=== PATIENT | female | born 1970 | race Caucasian/White ===

== ENCOUNTER 2020-05-05 12:38 | Outpatient (CLI) | payer OTHER, SELFPAY ==
--- NOTE | 2020-05-05 12:44 | MM_ITS ---
WS: [id number] BILATERAL SCREENING DIGITAL MAMMOGRAM WITH CAD HISTORY: SCREENING COMPARISON: 02/19/2019, 12/26/2017 Bilateral CC and MLO views submitted. Computer aided detection analyzed. Breast composition: There are scattered areas of fibroglandular density. No suspicious masses, microc alcifications or architectural distortion. Benign calcification LEFT breast. MM/[id number] IMPRESSION: BI-RADS: 2-Benign FOLLOW UP: 1 Year Follow-up
== END 2020-05-05 12:39 | disposition home or self-care (01) ==
LOC: RADSHAW 12:42
PROVIDERS: PCP Family Medicine; Visit Provider Obstetrics & Gynecology
DX: Z12.31 Encounter for screening mammogram for malignant neoplasm of breast (principal)
CPT/HCPCS: 77067

== ENCOUNTER 2020-07-05 09:11 | Emergency (ER) | payer OTHER, SELFPAY ==
[2020-07-05 09:19] VITALS: BP 124/91; PULSE 81; RESP 16; O2SAT 96; BMI 28.8
[2020-07-05 09:21] VITALS: BP 124/91; PULSE 82; RESP 18; O2SAT 97
--- NOTE | 2020-07-05 09:26 | ED_ITS ---
HPI - General Adult General: Chief complaint: Needlestick/Injury/Exposure Stated complaint: NEEDLESTICK Time Seen by Provider: 07/05/20 09:25 History of Present Illness: HPI narrative: Patient is a 50-year-old female who comes to the ED after having a needlestick injury at work. Patient works here at [employer]. 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 Patient describes as a superficial poke but she did have a little bit of bleeding. Patient says the medical history of the patient she gave the shot to is unknown. She denies any symptoms and clean injury and Place Band-Aid on finger. Associated symptoms: Deny chest pain, dyspnea, headache(s), nausea, rash, palpitations or vomiting Review of Systems Narrative: Needlestick injury. Const: Denies: fever(s), chills or fatigue Eyes: Denies: change in vision or eye discomfort ENMT: Denies: throat pain, odynophagia, nasal discharge or nasal congestion Card: Denies: chest pain, palpitations, edema, swelling of feet/ankles, dyspnea on exertion or orthopnea Resp: Denies: dyspnea, productive cough or non-productive cough GI: Denies: abdominal pain, nausea, vomiting, diarrhea, constipation or hematochezia : Denies: flank pain, dysuria or hematuria Musc: Denies: neck pain, back pain or extremity swelling Skin/Breast: Denies: rash or new lesions Neuro: Denies: headache(s), numbness in extremities or weakness in extremities [facility] ED PFSH: Medical History No pertinent past medical history Surgical History No pertinent past surgical history Family History Other Hypertension Social History Smoking and tobacco status: never smoked Alcohol intake: never History of recent travel: No Physical Exam Const: COMMON NORMALS: no acute distress, patient oriented x3, healthy appearing and alert GENERAL APPEARANCE: cooperative and comfortable HENMT: COMMON NORMALS: normocephalic HEAD & SCALP: normocephalic MOUTH: Normal oral and palatal mucosa present THROAT: posterior oropharynx normal and uvula midline Neck/C-Spine: COMMON NORMALS: supple GENERAL: Yes normal visual inspection Resp: COMMON NORMALS: normal respiratory effort, No retractions, No use of accessory muscles and clear to auscultation bilaterally AUSCULTATION: clear to auscultation bilaterally Cardio: COMMON NORMALS: regular rate, regular rhythm, S1 normal heart sound present, S2 normal heart sound present, No gallops present (Cardio), No clicks present (Cardio), No murmurs present (Cardio) and Peripheral pulses 2+ throughout RATE: regular rate RHYTHM: regular rhythm HEART SOUNDS: S1 normal heart sound present and S2 normal heart sound present PERIPHERAL PULSES: Peripheral pulses 2+ throughout GI: COMMON NORMALS: Normal to inspection, nondistended, normoactive bowel sounds present, Soft to palpation, non-tender and no masses PALPATION: Yes Soft to palpation : COMMON NORMALS: Yes no CVA tenderness BLADDER/KIDNEY EXAM: Yes no CVA tenderness Back/Pelvis: COMMON NORMALS: no CVA tenderness Extremity: NARRATIVE EXTREMITY EXAM: Left hand-Index finger with small puncture wound. Neuro: COMMON NORMALS: patient oriented x3 and moves all extremities SENSORIUM/ORIENTATION: Yes alert Skin: NARRATIVE SKIN EXAM: Left hand-Index finger with small puncture wound. GENERAL SKIN EXAM: dry skin Course Vital Signs: Vital signs: Vital Signs Pulse Rate 75 07/05/20 10:01 Respiratory Rate 18 07/05/20 09:21 Blood Pressure 123/77 07/05/20 10:01 Pulse Oximetry 97 07/05/20 10:01 MDM - General Adult MDM Narrative: Medical decision making narrative: Patient is a 50-year-old female comes to the ED after having an accidental needlestick at work. Patient works at [employer]. She is in no acute distress or pain into having any symptoms currently. Hepatitis panel and HIV labs were all negative. Patient's discharged and I told patient to have labs repeated in the next 2 to 4 months. Return to ED precautions given. Patient stood agree with plan. Lab Data: Labs: Lab Results 07/05/20 07/05/20 Range/Units 09:39 09:39 Hepatitis A IgM Ab Non-reactive (Nonreactive) Hep Bs Antigen Non-reactive (Nonreactive) Hep Bs Antibody 19.9 (11.5-1000) Hep B Core Total A b Non-reactive (Nonreactive) Hepatitis C Antibo dy Non-reactive (Nonreactive) HIV 1&2 Ab & HIV 1 Ag Non-reactive (Non-Reactiv) HIV 1&2 Antibody Non-reactive (Non-Reactiv) Discharge Plan Discharge Patient Disposition: Home Clinical Impression: Needle stick injury Condition: Stable Prescriptions: No Action No Known Home Medications RF: 0 Discharge Orders: Discharge ED (Routine); Ordered 07/05/20 Ordered By: Haris Stanley Referrals: Chip Duque MD [Primary Care Provider] - Discharge Diet: Regular Discharge Activity: Resume usual activity Patient Instructions: Blood/Body Fluid Exposure - Occupational, Needle Stick Injuries (ED) Activity Restrictions/Additional Instructions: Follow-up with medical provider as directed. Follow-up in the next 2 to 4 months with PCP in the next 2 to 4 months to repeat hepatitis and HIV lab work. Return to the ER or your medical provider if condition worsens. Please read and understand discharge instructions. If any questions, please ask. Coding Level of Care Code ED Hydrological Technical Officer for Zohreh Fwd Exam Comprehensive
[2020-07-05 10:01] VITALS: BP 123/77; PULSE 75; O2SAT 97
[2020-07-05 10:33] LABS: Hepatitis A Antibody IgM Non-Reactive (Nonreactive); Hepatitis B Core AB, Total Non-Reactive (Nonreactive); Hepatitis B Surface AB 19.9 (11.5-1000); Hepatitis B Surface Antigen Non-Reactive (Nonreactive); Hepatitis C Virus Antibody Non-Reactive (Nonreactive)
[2020-07-05 19:15] LABS: HIV 1 & 2 Antibody Non-Reactive (Non-Reactiv); HIV 1 & 2 Antigen Non-Reactive (Non-Reactiv)
== END 2020-07-05 10:05 | disposition home or self-care (01) ==
PROVIDERS: Emergency Provider Physician Assistant; PCP Family Medicine
DX: S61.231A Puncture wound without foreign body of left index finger without damage to nail, initial encounter (principal); W46.1XXA Contact with contaminated hypodermic needle, initial encounter; Y99.0 Civilian activity done for income or pay
CPT/HCPCS: 86705; 86706; 86709; 86803; 87340; 87806; 99282

== ENCOUNTER 2021-12-06 11:50 | Outpatient (CLI) | payer OTHER, SELFPAY ==
--- NOTE | 2021-12-06 11:56 | MM_ITS ---
WS: [id number] BILATERAL SCREENING DIGITAL TOMOSYNTHESIS MAMMOGRAM WITH CAD HISTORY: SCREENING COMPARISON: 05/05/2020 and 02/19/2019 Bilateral CC and MLO views with tomosynthesis and synthetic mammography submitted. Computer aided det ection analyzed. Breast composition: There are scattered areas of fibroglandular density. No suspicious masses, microc alcifications or architectural distortion. Benign calcification posterior LEFT breast. MM/[place] [id number] IMPRESSION: BI-RADS: 2-Benign FOLLOW UP: 1 Year Follow-up
== END 2021-12-06 11:51 | disposition home or self-care (01) ==
LOC: RAD 11:51
PROVIDERS: PCP Family Medicine; Visit Provider Family Medicine
DX: Z12.31 Encounter for screening mammogram for malignant neoplasm of breast (principal)
CPT/HCPCS: 77063; 77067

== ENCOUNTER → 2021-12-28 11:21 | Outpatient (BNVA) | payer OTHER, SELFPAY | PROVIDERS: PCP Family Medicine; Visit Provider Nurse Practitioner Women's Health | DX: N93.9 Abnormal uterine and vaginal bleeding, unspecified (principal) | CPT/HCPCS: 76830; 85025; 87624 ==

== ENCOUNTER 2022-01-12 01:00 | Outpatient (CLI) | payer OTHER, SELFPAY | END 2022-01-12 23:00 | disposition home or self-care (01) | LOC: RAD 01-22 22:54 | PROVIDERS: PCP Family Medicine; Visit Provider Nurse Practitioner | DX: Z12.4 Encounter for screening for malignant neoplasm of cervix (principal); R87.615 Unsatisfactory cytologic smear of cervix | CPT/HCPCS: 88175; 88305 ==

== ENCOUNTER 2022-04-11 17:00 | Observation (INO) | payer OTHER, SELFPAY ==
[2022-04-09 13:29] VITALS: BMI 28.8
--- NOTE | 2022-04-09 14:13 | P.ANESASSM_ITS ---
Pre-Anesthetic Assessment Height/Weight: Height 1.73 m Weight 86.183 kg Preop Diagnosis: Abnormal uterine bleeding Operation Date: 04/11/22 11:10 Proposed Procedures p Laparoscopic assisted vaginal hysterectomy, bilateral salpingo-oophorectomy 73372, Single incision sling 49780,N93.9,N39.3(Not Applicable) - Phoenix Monte MD s Sling Single Incision Sling(Not Applicable) - Phoenix Monte MD Familial anesthetic complications: None Social No alcohol and No tobacco Exam alert, oriented x 3, clear to auscultation bilaterally and regular rate & rhythm Airway Mallampati: Class II Dentition: full AUB Anesthetic Plan ASA status: 2 Anesthesia: General Risk of > 500 ml blood loss (7ml/kg in children): No Medications/Allergies Home Medications Medication Instructions Recorded Confirmed Last Taken Type dorzolamide 22.3 mg-timolol 6.8 1 drp ophthalmic (eye) BID 12/28/21 04/09/22 04/09/22 History mg/mL eye drops (Cosopt) travoprost 0.004 % eye drops drp ophthalmic (eye) 12/28/21 04/09/22 Unknown History (Travatan Z) norethindrone acetate 5 mg tablet 5 mg PO DAILY #30 tabs 01/16/22 04/09/22 Unknown Rx Allergies Allergy/AdvReac Type Severity Reaction Status Date / Time No Known Allergies Allergy Verified 04/09/22 13:27 [facility] Anesthesia Medical History No pertinent past medical history neghx: htn,dm,thyroid,dvt/pe PCP: Dr. Duque Surgical History Hx of cataract extraction (~1995) 1995 2018 Hx of section 1) 01/30/1999, Perfomed at [facility] in [place], [place]. 2) 09/26/2000 Performed at [facility] in [place], [place]. 3) 05/26/2003 Performed at [facility] in [place], [place]. Hx of eye surgery 03/1994, Correction of Detached Retina 07/1994, Correction of Detached Retina Hx of tubal ligation (~2003) Preformed at the time of last in 2003 Family History Mother Family history of thyroid problem Hypertension Hyperlipidemia Father Hypertension Denies family history of Colon cancer Ovarian cancer Diabetes Heart disease Breast cancer Uterine cancer Stroke Social History Smoking and tobacco status: never smoked Female Reproductive History Date of last menstrual period: 03/19/22 Data Anesthesia Cardiac Studies: No Data to Display
[2022-04-09 14:16] LABS: Add Urine Microscopic? NO; Charge for UA Resulting for Rev
[2022-04-09 14:17] LABS: OR HCG Qualitative Urine Negative (Negative)
[2022-04-09 14:21] LABS: Basophils % 0.5 %; Eosinophils # 0.1 10^3/uL (0.0-0.8); Eosinophils % 2.2 %; Hematocrit 42.1 % (37.0-47.0); Lymphocytes # 1.6 10^3/uL (0.8-4.8); Lymphocytes % 24.5 %; Mean Corpuscular HGB Conc 30.9 g/dL (30.0-36.0); Mean Corpuscular Hemoglobin 27.1 pg (28.0-34.0); Mean Corpuscular Volume 87.7 fl (81-99); Mean Platelet Volume 12.7 fL (7.4-10.4); Monocytes # 0.5 10^3/uL (0.2-0.9); Monocytes % 7.4 %; Neutrophils # 4.22 10^3/uL (1.8-7.7); Neutrophils % 65.1 %; Nucleated Red Blood Cells % 0 %; Platelet Count 171 10^3/cmm (130-400); Red Cell Distribution Width 13.2 % (12.1-15.1); White Blood Count 6.5 10^3/uL (4.0-10.0)
[2022-04-09 14:26] LABS: Bilirubin Urine Neg (Negative); Blood Urine Neg (Negative); Glucose Urine UA Norm (Normal); Ketones Urine Negative (Negative); Leukocyte Esterase Urine Negative (Negative); Nitrate Urine Negative (Negative); Protein Urine Neg (Negative); Specific Gravity, Urine 1.005 (1.005-1.030); Urine Appearance Clear (CLEAR); Urine Color Yellow (Yellow); Urobilinogen Urine Neg (Negative); pH Urine 7 (5-7)
[2022-04-09 14:40] LABS: Alanine Aminotransferase 13 U/L (0-33); Albumin Level 4.4 g/dL (3.5-5.2); Alkaline Phosphatase 73 U/L (35-105); Anion Gap 12.9 (5-19); Aspartate Amino Transferase 15 U/L (0-32); Blood Urea Nitrogen 10 mg/dL (6-20); Calcium 8.6 mg/dL (8.5-10.5); Carbon Dioxide 24 mmol/L (22-29); Chloride 102 mmol/L (98-107); Globulin 2.9 g/dL (1.3-4.6); Glomerular Filtration Rate 105.8 mL/min (90-130); Glucose 74 mg/dL (65-115); Osmolality Calculated 278 mOsm/kg (285-295); Potassium 3.9 mmol/L (3.5-5.1); Sodium 135 mmol/L (136-145); Total Bilirubin 0.3 mg/dL (0.15-1.2); Total Protein 7.3 g/dL (6.6-8.7)
[2022-04-11] VITALS (23 sets, daily range): BP systolic 65–140; BP diastolic 40–82; PULSE 59–73; RESP 12–23; TEMP 36.7–37.4; O2SAT 93–100
[2022-04-11] MEDS: sodium chloride 0.9% 500 ML IV (09:48)
[2022-04-11] MEDS: sodium chloride 0.9% 1,000 ML 30 ML IV (09:49)
[2022-04-11] MEDS: scopolamine 1.5 Patch 1 PATCH TRANSDERMA (09:49)
[2022-04-11 09:57] LABS: OR HCG Qualitative Urine Negative (Negative)
--- NOTE | 2022-04-11 10:08 | P.ANESUD_ITS ---
Pre-Anesthetic Update Pre-Anesthetic Assessment: Date of Surgery/Procedure: 04/11/22 Preop Chiqui gnosis: Abnormal uterine bleeding Proposed Procedure: Operation Date: 04/11/22 11:10 Proposed Procedures p Laparoscopic assisted vaginal hysterectomy, bilateral salpingo-oophorectomy 23649, Single incision sling 13008,N93.9,N39.3(Not Applicable) - Phoenix Monte MD s Sling Single Incision Sling(Not Applicable) - Phoenix Monte MD Any changes to Pre-Anesthetic Assessment?: No Last Intake: Intake Last Liquid Date 04/10/22 Last Liquid Time 21:30 Last Solid Date 04/10/22 Last Solid Time 20:30 Labs Last 48hrs: Short CBC 04/09/22 Range/Units 14:00 WBC 6.5 (4.0-10.0) 10^3/ uL Hgb 13.0 (11.5-15.3) g/dL Hct 42.1 (37.0-47.0) % MCV 87.7 (81-99) fl Plt Count 171 (130-400) 10^3/c mm Neut % (Auto) 65.1 % Neut # (Auto) 4.22 (1.8-7.7) 10^3/u L BMP 04/09/22 14:00 Sodium 135 L Potassium 3.9 Chloride 102 Carbon Dioxide 24 BUN 10 Creatinine 0.6 Glucose 74 Calcium 8.6 Liver Function 04/09/22 Range/Units 14:00 Total Bilirubin 0.3 (0.15-1.2) mg/dL AST 15 (0-32) U/L ALT 13 (0-33) U/L Alkaline Phosphata se 73 (35-105) U/L Albumin 4.4 (3.5-5.2) g/dL Urine 04/09/22 Range/Units 13:43 Urine Color Yellow (Yellow) Urine Appearance Clear (CLEAR) Urine pH 7 (5-7) Ur Specific Gravit y 1.005 (1.005-1.030) Urine Protein Neg (Negative) Urine Glucose (UA) Norm (Normal) Urine Ketones Negative (Negative) Urine Nitrate Negative (Negative) Urine Bilirubin Neg (Negative) Ur Leukocyte Leonora ase Negative (Negative) Blood Bank 04/09/22 14:00 Blood Type A Negative Rho(D) Type Negative Antibody Screen Negative Vitals: Temperature 99.4 F 04/11/22 09:41 Temperature Source Temporal Artery S can 04/11/22 09:41 Pulse Rate 73 04/11/22 09:41 Respiratory Rate 16 04/11/22 09:41 Blood Pressure 140/82 04/11/22 09:41 Blood Pressure Marisa n 101 04/11/22 09:41 Pulse Oximetry 98 04/11/22 09:41 Oxygen Delivery Me thod 04/11/22 09:41 Exam: Pre-Anes Outpt Exam: alert, oriented x 3, clear to auscultation bilaterally and regular rate & rhythm Cardiac Studies: No Data to Display
--- NOTE | 2022-04-11 12:00 | W.PM.OPSUD ---
Surgery/Procedure H&P Update DATE OF PROCEDURE: April 11, 2022 DATE H&P PERFORMED: 04/09/22 H&P UPDATE INFORMATION: I have reviewed H&P completed within last 30 days, I have examined patient prior to procedure and No changes to prior documentation PREOP DIAGNOSIS: Abnormal uterine bleeding PLANNED PROCEDURE: Operation Date: 04/11/22 11:10 Proposed Procedures p Laparoscopic assisted vaginal hysterectomy, bilateral salpingo-oophorectomy 44346, Single incision sling 53795,N93.9,N39.3(Not Applicable) - Phoenix Monte MD s Sling Single Incision Sling(Not Applicable) - Phoenix Monte MD
[2022-04-11] MEDS: ceFOXitin 2,000 MG in sodium chloride 0.9% (plus) 50 ML 100 MG IV (12:45)
[2022-04-11] MEDS: lidocaine 2% INJ 20 mL INJECTION (15:10)
[2022-04-11] MEDS: estrogens Conjugated Cream 30 gm 1 APPLIC VAGINAL (15:25)
--- NOTE | 2022-04-11 15:31 | PM.OP ---
Operative Report Date of procedure: April 11, 2022 Pre-op diagnosis: Preop Diagnosis Abnormal uterine bleeding Post-op diagnosis: Same as above Post-op findings: Enlarged uterus and bladder adhesions Procedure done: Laparoscopic-assisted vaginal hysterectomy. Single incision mid urethral sling Specimens removed/disposition: Uterus Surgeon: Phoenix Monte MD Estimated blood loss (mL): 500 IV fluids (mL): 1,700 Urine output (mL): 300 Complications: Bleeding. Findings: Bladder adhesions Procedure: After informed consent, the patient was taken to the operating room where general anesthesia was administered. Pre-Procedure Time-Out verifying the correct patient identity, correct procedure verified with consent, correct site and side, correct patient position, availability of correct implants and any special equipment or requirements was performed and acknowledge by the OR team. She was placed in the dorsal lithotomy position and prepped and draped in sterile fashion. The patient was examined under anesthesia and found to have a normal uterus with normal adnexa. A Hanson catheter was placed in the bladder. A weighted speculum was placed in the vagina, and the anterior lip of cervix was grasped with the single toothed tenaculum. A uterine manipulator was advanced into the endocervical. Tenaculum was removed after uterine manipulator was secured. The speculum was removed from the vagina. The attention was brought to abdomen after changing gloves. The base of the umbilicus was grasped with an Allis clamp and with 2 towel clamp bilaterally tenting up the umbilicus an intraumbilical incision was made with a scalpel. While tenting up on the abdomen, a Verres needle with sleeve was admitted into the intra-abdominal cavity. A saline drop test was performed and noted to be within normal limits. Pneumoperitoneum was attained with 4 liters of carbon dioxide. The Verres needle was removed. Then a 5 mm Optiview trocar and cannula were inserted under direct visualization without complications. Trocars were removed and the laparoscope was inserted and connected to the video camera light source. A 5 mm trocar and cannula were placed in the right lower quadrant under direct visualization after infiltration of 0.5% Marcaine with epinephrine. A 5 mm trocar and cannula were placed in the left lower quadrant under direct visualization after infiltration of 0.5% Marcaine with epinephrine. The pelvic contents were visualized and noted a small uterus, deep cul-de-sac, normal bilateral fallopian tubes and ovaries, normal appendix, and both ureters were identified crossing the pelvic brim and pelvic sidewall. The left round ligament was coagulated and transected using Enseal device. The left broad ligament was opened down to the level of the uterine artery and vein. The left infundibulopelvic ligament was coagulated using Enseal and then transected. The right round ligament was coagulated and transected using Enseal, and the right broad ligament was opened down to the level of the right uterine artery and vein. The right infundibulopelvic ligament was coagulated and transected using Enseal. Peritoneum of the lower uterine segment was entered using Enseal, and the bladder was dissected off the lower uterine segment using blunt dissection. Careful inspection revealed complete hemostasis. A weighted speculum was placed in the posterior vaginal wall and the right-angle retractor used to visualize the cervix. The cervix was grasped across the anterior lip with a single-toothed tenaculum and circumferentially infiltrated with 1% Xylocaine with epinephrine at this time. The cervix was circumferentially excised with the scalpel. The vaginal mucosa was dissected superiorly with sharp dissection. The anterior peritoneal reflection was identified, and it was entered with Metzenbaum scissors. A posterior colpotomy was made through the cul-de-sac space. The posterior peritoneum was identified in similar fashion and Metzenbaum scissors were used to enter the cul-de-sac. At this time, a weighted speculum was placed, advanced posteriorly into the cul-de-sac. At this time, the left and right uterosacral ligaments were isolated and ligated with 0 Vicryl. The Enseal device was then used in a serial fashion up through the cardinal ligaments bilaterally. Finally, the uterine arteries were cross-clamped, cut, and ligated with the Enseal device. Enseal device was then used up through the broad ligaments superiorly and finally the uterus was rotated posteriorly. The left and right tubes were then cross-clamped and ligated with Enseal device. The uterus was excised and submitted for pathologic evaluation. At this time, Dime Box clamps were used to grasp the left and right ovaries, and they were removed per the patient's request. Curved Zeppelin clamps were placed across the infundibulopelvic ligaments bilaterally and curved scissors were used to excise the specimen from the Zeppelin clamp. The pedicles were doubly ligated bilaterally with 0 Vicryl and hemostasis noted to be achieved. No other abnormalities were noted in the pelvic cavity. At this time, instruments were removed from the patient's abdominopelvic cavity. Vaginal cuff closure and peritoneum were incorporated into one layer with 0 Vicryl suture in a continuous running interlocking fashion. Hemostasis was noted to be achieved. Patient was given methylene blue IV. Then proceeded to perform the single incision mid urethral sling.A vertical midline incision was made beneath the midurethra, nearly 1.5 cm length. Careful submucosal dissection was performed bilaterally up to the interior portion of the inferior pubic ramus. The insertion of adductor longus tendon on the patient?s pubic ramus was identified as reference land jael. Palpated the notch along the internal edge of ischiopubic ramus where the adductor longus tendon and the inferior pubic ramus meet. The Altis single incision sling (SIS) was selected. Then the needle of the SIS inserted aiming at the location of this notch. One of the integrated self-fixating tips place onto the needle by sliding it over the end of the needle. The needle/sling assembly was inserted toward the location of identified reference notch making sure that the flat of the handle is perpendicular to the desired path. The needle was tracked along the posterior surface of the ischiopubic ramus until the midline jael on the mesh is approximately at the midline position under the urethra. The needle was removed and the same was repeated on the contralateral side until the appropriate sling tension under the urethra was achieved ensuring that the mesh lays flat. The needle was removed and vaginal incision was closed in a running interlocking fashion with 2-0 Vicryl. Hanson catheter was noted yielding clear lawrence urine. A vaginal packing with Premarin cream was placed to provide support during the healing process. The patient tolerated the procedure well and was taken to the recovery room in a stable condition. Sponge and needle counts were correct x3.
--- NOTE | 2022-04-11 15:50 | ANE.PACU2 ---
Inpatient post-anesthesia follow up: Airway intact: Yes Vital signs: Temperature 99.4 F Pulse Rate 73 Respiratory Rate 16 Blood Pressure 140/82 Pulse Oximetry 98 Oxygen Delivery Me thod Room Air Oxygen Flow Rate Fraction of Inspir ed Oxygen Hydration adequate: Yes Nausea and vomiting: No Pain level: 1 Mental status: Baseline
[2022-04-11 16:21] LABS: Hematocrit 34.6 % (37.0-47.0); Hemoglobin 10.5 g/dL (11.5-15.3)
--- NOTE | 2022-04-11 16:38 | PC.NURSE ---
Addendum entered by Sushma Belcher RN 04/11/22 16:47: Albumin administration time was 1603 Original Note: ABDOMEN SOFT ON ARRIVAL WITH NO ACTIVE BLEEDING NOTED. ORAL AIRWAY REMOVED @ 1550. bp drop noted. Dr Garcia @ bedside. Albumin administered by DRYING MACHINE RECEIVER. Patient remained alert and oriented with no sign of active bleeding. Abdomen remained soft.
--- NOTE | 2022-04-11 17:16 | PC.NURSE ---
Saucer sized bleeding noted on chux when patient transferred from cart to bed. OB nurse aware and stated she will monitor
--- NOTE | 2022-04-11 17:28 | PC.NURSE ---
Attempted to update Dr. Monte. No answer. Called OB to let them know I was not able to reach him. Dr. Monte valled OB. OB nurse will update.
[2022-04-11] MEDS: docusate sodium 100 mg Capsule PO (18:25)
[2022-04-11] MEDS: ketorolac 30 mg/mL INJ IVP ×2 (18:25→23:25)
[2022-04-11] MEDS: COSOPT 1 EACH EYE-BOTH (19:19)
--- NOTE | 2022-04-11 21:20 | PC.NURSE ---
Patient was helped from bed to chair. Initially she felt a little light headed when sitting up in bed but sat on the side of the bed for several minutes and then felt better. She then stood up and felt fine to walk to the chair beside the bed. She sat in the chair for almost 15 minutes and wanted to attempt to walk and she was feeling better. She stood up from the chair slowly but then when we started to walk towards the door she said that she felt lightheaded again and felt like she was going to pass out. I helped her back to the chair and sat her down. I took her vitals and it was blood pressure 75/48, heart rate of 52 pulse ox was 99% and RR was 22. She was pale in color. She sat in the chair for a couple minutes but was still feeling lightheaded I assisted her back to bed and once she laid down she reported feeling much better. After a couple minutes she regained her color in her face. I gave her some crackers and peanut butter as she had no eaten much today and instructed her to drink lots of water as well. I stayed with her in the room until she reported feeling better. Repeat check of vitals was blood pressure 118/75, heart rate 74, RR was 18, and pulse ox of 99%.
[2022-04-12 00:10] VITALS: BP 95/54; PULSE 67; RESP 17; TEMP 36.5; O2SAT 99
[2022-04-12 02:30] VITALS: BP 95/56; PULSE 71; RESP 18; TEMP 36.6; O2SAT 98
[2022-04-12] MEDS: dextrose 5%-lactated ringers 1,000 ML 125 ML IV (03:00)
[2022-04-12 04:15] VITALS: BP 93/50; PULSE 74; RESP 17; TEMP 36.7; O2SAT 99
--- NOTE | 2022-04-12 05:30 | PC.NURSE ---
Patient walked one lap around the OB department with standby assistance from nurse. She tolerated the walk well and denied of dizziness. She was then helped back to bed and laid down. I removed 10 ml of water from bucio bulb and then bucio was removed catheter intact upon removal. Patient tolerated the procedure well. Vaginal packing was then removed as well. Patient tolerated the procedure well. I then instructed the patient that the next time she urinates to urinate in the hat and then push her call light and we will bring in the bladder scanner. She verbalized understanding.
[2022-04-12] MEDS: ketorolac 30 mg/mL INJ IVP (05:37)
[2022-04-12 05:38] LABS: Hematocrit 27.4 % (37.0-47.0); Hemoglobin 8.4 g/dL (11.5-15.3); Mean Corpuscular HGB Conc 30.7 g/dL (30.0-36.0); Mean Corpuscular Hemoglobin 27.5 pg (28.0-34.0); Mean Corpuscular Volume 89.5 fl (81-99); Mean Platelet Volume 12.5 fL (7.4-10.4); Platelet Count 125 10^3/cmm (130-400); Red Blood Count 3.06 10^6/uL (4.1-5.3); Red Cell Distribution Width 13.2 % (12.1-15.1); White Blood Count 11.2 10^3/uL (4.0-10.0)
--- NOTE | 2022-04-12 07:27 | PC.NURSE ---
Patient up to void at 0715, noted have moderate amount of vaginal bleeding in to toilet while up to void.
[2022-04-12] MEDS: docusate sodium 100 mg Capsule PO (09:09)
[2022-04-12 09:11] VITALS: BP 134/81; PULSE 74; RESP 16; O2SAT 98
--- NOTE | 2022-04-12 10:38 | P.DS_ITS ---
Discharge Providers SAFETY AND SECURITY MANAGER Date of Admission: 04/11/22 17:00 Date of Discharge: 04/12/22 Attending Provider at Admission: Phoenix Monte MD Attending Provider at Discharge: Phoenix Monte MD Primary Care Provider: Chip Duque MD Reason for Visit Reason for Visit: abnormal uterine and vaginal bleeding, unspecified Brief History: Mrs. Willoughby 52-year-old female with abnormal uterine bleeding and uterine fibroid unresponsive to medical management. Past surgical history is significant for 3 deliveries. Hospital Course Hospital Course Mrs. Menon 52-year-old female with a history of abnormal uterine bleeding and uterine fibroid admitted for planned laparoscopic-assisted vaginal hysterectomy with bilateral salpingo-oophorectomy. Procedure was performed with lysis of adhesions adhesions. Overnight observation significant for occasional blood pressure, small vaginal bleeding. She is afebrile hemodynamically stable postoperative day 1. Tolerating diet well. Ambulating without difficulty. She was counseled regarding pelvic rest for 6 weeks (no sex, no tampons, no vaginal douches). Return to the emergency room if any fever, increased bleeding or pain. Physical Exam Narrative: GA: Alert and oriented ?3. HEENT: WNL. Heart: Regular rate and rhythm. Lungs: Clear to auscultation bilaterally. Abdomen: Bowel sounds present, nontender, minimal tenderness, incision clean and dry, no redness, pain or edema. GROUP HOME PARAPROFESSIONAL: mod bleeding. Extremities: No edema, no cyanosis, no calves pain. Urinary Catheter Management: Hanson: Cath Placed During This Visit: yes, but has since been removed by the nurse Reason for Continuing Indwelling Catheter: Decision to DC Catheter Urinary Catheter Date of Insertion: 04/11/22 Urinary Catheter Time of Insertion: 13:15 Date Urinary Catheter Removed: 04/12/22 Time Urinary Catheter Discontinued: 05:30 History History History 3 Term 3 0 Miscarriages/Ectopic 0 Living Children 3 Discharge Data Studies Completed and Pending Pending at discharge Category Date Time Status Pathology: Surgical [PTH] Routine Pth 04/11/22 15:44 Received Laboratory Results WBC 11.2 10^3/uL (4.0-10.0) H 04/12/22 05:27 RBC 3.06 10^6/uL (4.1-5.3) L 04/12/22 05:27 Hgb 8.4 g/dL (11.5-15.3) L 04/12/22 05:27 Hct 27.4 % (37.0-47.0) L 04/12/22 05:27 MCV 89.5 fl (81-99) 04/12/22 05:27 MCH 27.5 pg (28.0-34.0) L 04/12/22 05: MCHC 30.7 g/dL (30.0-36.0) 04/12/22 05: RDW 13.2 % (12.1-15.1) 04/12/22 05:27 Plt Count 125 10^3/cmm (130-400) L 04/12/22 05:27 MPV 12.5 fL (7.4-10.4) H 04/12/22 05:27 Neut % (Auto) 65.1 % 04/09/22 14:00 Lymph % (Auto) 24.5 % 04/09/22 14:00 [place] % (Auto) 7.4 % 04/09/22 14:00 Eos % (Auto) 2.2 % 04/09/22 14:00 Baso % (Auto) 0.5 % 04/09/22 14:00 Neut # (Auto) 4.22 10^3/uL (1.8-7.7) 04/09/22 14:00 Lymph # (Auto) 1.6 10^3/uL (0.8-4.8) 04/09/22 14:00 [place] # (Auto) 0.5 10^3/uL (0.2-0.9) 04/09/22 14:00 Eos # (Auto) 0.1 10^3/uL (0.0-0.8) 04/09/22 14:00 Baso # (Auto) 0.0 10^3/uL (0.0-0.1) 04/09/22 14:00 Nucleated RBC % (auto) 0 % 04/09/22 14:00 Nucleated RBCs # 0.0 /100WBC 04/09/22 14:00 Sodium 135 mmol/L (136-145) L 04/09/22 14:00 Potassium 3.9 mmol/L (3.5-5.1) 04/09/22 14:00 Chloride 102 mmol/L (98-107) 04/09/22 14:00 Carbon Dioxide 24 mmol/L (22-29) 04/09/22 14:00 Anion Gap 12.9 (5-19) 04/09/22 14:00 BUN 10 mg/dL (6-20) 04/09/22 14:00 Creatinine 0.6 mg/dL (0.5-0.9) 04/09/22 14:00 GFR Calculation 105.8 mL/min (90-130) 04/09/22 14:00 Glucose 74 mg/dL (65-115) 04/09/22 14:00 Calculated Osmolality 278 mOsm/kg (285-295) L 04/09/22 14:00 Calcium 8.6 mg/dL (8.5-10.5) 04/09/22 14:00 Total Bilirubin 0.3 mg/dL (0.15-1.2) 04/09/22 14:00 AST 15 U/L (0-32) 04/09/22 14:00 ALT 13 U/L (0-33) 04/09/22 14:00 Alkaline Phosphatase 73 U/L (35-105) 04/09/22 14:00 Total Protein 7.3 g/dL (6.6-8.7) 04/09/22 14:00 Albumin 4.4 g/dL (3.5-5.2) 04/09/22 14:00 Globulin 2.9 g/dL (1.3-4.6) 04/09/22 14:00 Urine Color Yellow (Yellow) 04/09/22 13:43 Urine Appearance Clear (CLEAR) 04/09/22 13:43 Urine pH 7 (5-7) 04/09/22 13:43 Ur Specific [place] 1.005 (1.005-1.030) 04/09/22 13:43 Urine Protein Neg (Negative) 04/09/22 13:43 Urine Glucose (UA) Norm (Normal) 04/09/22 13:43 Urine Ketones Negative (Negative) 04/09/22 13:43 Urine Blood Neg (Negative) 04/09/22 13:43 Urine Nitrate Negative (Negative) 04/09/22 13:43 Urine Bilirubin Neg (Negative) 04/09/22 13:43 Urine Urobilinogen Neg mg/dL (Negative) 04/09/22 13:43 Ur Leukocyte Esterase Negative (Negative) 04/09/22 13:43 Urine HCG, Qual Negative (Negative) 04/11/22 09:56 Blood Type A Negative 04/09/22 14:00 Rho(D) Type Negative 04/09/22 14:00 Antibody Screen Negative 04/09/22 14:00 Vitals Last Vital Signs Temp 98.1 F 04/12/22 04:15 Pulse 74 04/12/22 09:11 Resp 16 04/12/22 09:11 BP 134/81 04/12/22 09:11 Pulse Ox 98 04/12/22 09:11 O2 Del Method 04/12/22 09:11 O2 Flow Rate 8 04/11/22 15:50 Discharge Plan Discharge Patient Disposition: Home Condition: Stable Prescriptions: New hydrocodone-acetaminophen 5-325 mg tablet 1 tab PO Q4H PRN (Reason: pain) Qty: 20 0RF acetaminophen 325 mg capsule 325 mg PO Q4H PRN (Reason: fever or postoperative pain) Qty: 60 0RF docusate sodium [Colace] 100 mg capsule 100 mg PO BID Qty: 30 0RF ferrous sulfate [Iron (ferrous sulfate)] 325 mg (65 mg iron) tablet 325 mg PO BID Qty: 60 0RF ibuprofen 800 mg tablet 800 mg PO TID PRN (Reason: pain) Qty: 60 0RF Continued travoprost [Travatan Z] 0.004 % drops 1 drp ophthalmic (eye) DAILY dorzolamide-timolol [Cosopt] 22.3-6.8 mg/mL drops 1 drp ophthalmic (eye) BID Label Comments: Right eye BID Discharge Orders: Discharge Order (Routine); Ordered 04/12/22 Ordered By: Phoenix Monte Referrals: Phoenix Monte MD [Physician] - 04/24/22 8:15 am (6 week follow up 05/22/22@4pm) Discharge Diet: Usual diet Discharge Activity: Limit activity as instructed Patient Instructions: Ibuprofen (By mouth), Laxative, Stool Softeners (By mouth), Laparoscopic Hysterectomy (DC), OB Discharge Report, OB Food/Drug Interaction Guide, Opioid Safety Activity Restrictions/Additional Instructions: 1. Please call [facility] clinic on next working day to make your post-operative appointment in 2 weeks. 2. Please stay home until you come back to the clinic on first post-operative check up. 3. Please follow instructions on your medications CAREFULLY. 4. If you have abdominal incision, do not cover it unless dressing is necessary because of drainage. OK to shower, but avoid bath. Leave steri-strips until they fall off. If they are still on one week after surgery, you may remove them. 5. If you had vaginal surgery or vaginal repair, Dr. Monte may instruct you to take SITZ bath. 6. Yellow, blood tinged odorous vaginal discharge is usually normal after hysterectomy or vaginal surgeries. 7. No sexual intercourse, tampons, or douches until you are completely released from the post-operative care. 8. Avoid constipation by eating right and maybe using some Metamucil or Milk of Magnesia. 9. All prescription refills are given during the working hours. Please do no wait till it runs out. Call the clinic at [phone] before your medication runs out. The clinic will get in touch with your doctor to prescribe medications if necessary. 10. Please remain within 40 mile radius from our hospital because emergencies do happen now and then during the post-operative period. 11. If you have stairs at home, take one step at a time slowly and minimize the number of trips. It helps to stay in one floor for the next few days. No lifting except what you can lift by one hand until you are released from the post-operative care. 12. Driving is discouraged until you are well healed. It may be 3-4 weeks before you feel strong enough to drive. You should be able to turn and look through the rear window without pain and you should be able to push the brake pedal very hard without pain before you drive. No fast rules, but SAFETY should be your primary concern. DO NOT drive if you are on sedating medications such as narcotics. 13. Call the clinic (during working hours) to make urgent appointment or go to the Emergency room, if any of the following occurs: i. Vaginal bleeding becomes heavy, more than a period. ii. Incision becomes red and sore, or drains pus. iii. Your temperature is over 100.4 or you have chill. iv. IV site becomes red and swollen (a little ``knot?? is usually OK) v. Persistent nausea and vomiting vi. Persistent constipation or diarrhea vii. Rash or allergic reaction to medications. Discharge Attestations SAFETY AND SECURITY MANAGER Time Spent in Discharge Care*: greater than 30 min Coding Level of Care Code Acute Code for Chg Fwd
--- NOTE | 2022-04-12 11:28 | US_ITS ---
WS: [id number] TRANSABDOMINAL PELVIC ULTRASOUND HISTORY: vaginal bleeding post hysterectomy COMPARISON: 12/28/2021. Status post hysterectomy since the prior study. A transabdominal imaging is submitted. There is a large amount of shadowing obscuring detail within t he pelvis. Mixed hypoechoic area in the midline could be a postoperative hematoma. This area of mixed echogenicity buffered only hypoechoic measures 9.8 x 5.5 x 4.3 cm. There is no free fluid in Morison 's pouch. US/US pelvic limited [id number] IMPRESSION: Hypoechoic area in the central pelvis measures 9.8 x 5.5 x 4.3 cm. May represen t a postoperative hematoma. Limited evaluation of the pelvic structures, only transabdominal imaging submit lola.
[2022-04-12 11:31] LABS: Hematocrit 29.6 % (37.0-47.0); Hemoglobin 8.9 g/dL (11.5-15.3); Mean Corpuscular HGB Conc 30.1 g/dL (30.0-36.0); Mean Corpuscular Hemoglobin 27.4 pg (28.0-34.0); Mean Corpuscular Volume 91.1 fl (81-99); Mean Platelet Volume 13.2 fL (7.4-10.4); Platelet Count 151 10^3/cmm (130-400); Red Blood Count 3.25 10^6/uL (4.1-5.3); Red Cell Distribution Width 13.3 % (12.1-15.1)
[2022-04-12 11:34] VITALS: BP 133/66; PULSE 69; RESP 16; O2SAT 98
--- NOTE | 2022-04-12 11:35 | PC.NURSE ---
Patient taken to OB 3 to utilize a bed with stirrups and Dr. Monte performed speculum exam with assembly instructions writer and Lia Manuel at bedside. Dr. Monte requested and utilized silver nitrate x2 sticks. Patient tolerated well and denied need for pain medication after exam was complete.
[2022-04-12] MEDS: silver nitrate applicator 1 EACH TOPICAL ×2 (12:02→12:03)
--- NOTE | 2022-04-12 12:59 | PC.NURSE ---
DR. RUFF WENT INTO TALK WITH PATIENT AND HE WAS OK WITH HER BEING DISCHARGED HOME AND APPOINTMENT MADE FOR HER TO SEE HIM ON SATURDAY.
[2022-04-12 13:37] VITALS: BP 133/82; PULSE 79; RESP 16; TEMP 36.6; O2SAT 98
== END 2022-04-12 13:20 | disposition home or self-care (01) ==
LOC: OBGYN 17:51
PROVIDERS: Anesthesiology; Admitting Provider Obstetrics & Gynecology; PCP Family Medicine; Visit Provider Obstetrics & Gynecology
PROC: 0UT9FZZ Resection of Uterus, Via Natural or Artificial Opening With Percutaneous Endoscopic Assistance (ICD-10-PCS; CPT 57288; principal; 2022-04-11 11:00)
PROC: (CPT 57288; 2022-04-11 11:00)
PROC: (CPT 58661; 2022-04-11 11:00)
DX: N93.9 Abnormal uterine and vaginal bleeding, unspecified (principal); N32.89 Other specified disorders of bladder
CPT/HCPCS: 57288; 58550; 36415; 51798; 76857; 80053; 81003; 81025; 84703; 85014; 85018; 85025; 85027; 86850; 86900; 88307; 96374; 96376; C1713; G0378; J0131; J0694; J1100; J1170; J1200; J1885; J2405; J2704; J2710; J3010; J3490; J7030; J7040; J7121; P9045; Q9968

== ENCOUNTER 2022-05-02 07:31 | Inpatient (IN) | payer OTHER, SELFPAY ==
[2022-05-02] VITALS (20 sets, daily range): BP systolic 95–137; BP diastolic 47–89; PULSE 62–96; RESP 12–19; TEMP 36.4–38.6; O2SAT 92–100; BMI 28.1
--- NOTE | 2022-05-02 07:51 | ED_ITS ---
HPI - General Adult General: Chief complaint: General Medical Stated complaint: post surgery hysterectomy, fever, pain Time Seen by Provider: 05/02/22 07:33 Source: patient Mode of arrival: ambulatory History of Present Illness: 4-year-old female presents emergency room complaining of abdominal pain and cramping. Patient is 3 weeks status post lap assisted Vach hysterectomy. Immediate postop. She had an hematoma. She had a little bit of vaginal bleeding and some dysuria low-grade fever noted overnight. Preoperative hemoglobin was 10.5 dipped down to 8.4 and then back up to 8.9 prior to discharge not been checked since discharge. She had increasing lower abdominal pain and increasing gas. Patient mentioned that she has had some postoperative complications of the hematoma however reading the surgery note in the discharge summary in the follow-up note there is no mention of hematoma there is mention of complication of bleeding during surgery with a 500 mL blood loss. She had some mild postoperative vaginal bleeding which had resolved and now she had noticed just a bit more again. She has been on pelvic rest since her surgery. Onset (ago): day(s) Location: pelvis Severity: mild Quality: aching Pain Consistency: constant Relieving factors: none Exacerbating factors: none Associated symptoms: Reports nausea; Deny chest pain, confusion, cough, diaphoresis, decreased appetite, dyspnea, fevers/chills, headache(s), malaise, rash, palpitations, seizures, short of breath, syncope, vomiting or weakness Review of Systems Const: Denies: fever(s), chills, fatigue, malaise or diaphoresis ENMT: Denies: throat pain, ear or mastoid pain, nasal discharge or nasal congestion Card: Denies: chest pain, palpitations or syncope Resp: Denies: dyspnea GI: Reports: abdominal pain and nausea; Denies: vomiting : Reports: vaginal bleeding; Denies: flank pain, difficulty voiding, dysuria, urinary frequency or urinary urgency Skin/Breast: Denies: rash Neuro: Denies: headache(s) or confusion PFS ED PFSH: Medical History Abnormal uterine bleeding (AUB) Fibroids, intramural No pertinent past medical history neghx: htn,dm,thyroid,dvt/pe PCP: Dr. Duque Surgical History History of hysterectomy (~04/11/22) JEREMY DORSEY, Single incision mid urethral sling: for AUB and FELIBERTO-- performed Dr. Monte Hx of cataract extraction (~1995) 1995 2018 Hx of section 1) 01/30/1999, Perfomed at [facility] in [place], [place]. 2) 09/26/2000 Performed at [facility] in [place], [place]. 3) 05/26/2003 Performed at [facility] in [place], [place]. Hx of eye surgery 03/1994, Correction of Detached Retina 07/1994, Correction of Detached Retina Hx of tubal ligation (~2003) Preformed at the time of last in 2003 Family History Mother Family history of thyroid problem Hypertension Hyperlipidemia Father Hypertension Denies family history of Colon cancer Ovarian cancer Diabetes Heart disease Breast cancer Uterine cancer Stroke Social History Smoking and tobacco status: never smoked Female Reproductive History: Date of last menstrual period: 03/19/22 Physical Exam Const: COMMON NORMALS: no acute distress GENERAL APPEARANCE: cooperative and comfortable ORIENTATION/CONSCIOUSNESS: Yes awake, Yes oriented to person, Yes oriented to place and Yes oriented to time HENMT: COMMON NORMALS: normocephalic, atraumatic and hearing grossly normal bilaterally HEAD & SCALP: normocephalic and atraumatic Resp: COMMON NORMALS: normal respiratory effort, No retractions, No use of accessory muscles and clear to auscultation bilaterally AUSCULTATION: clear to auscultation bilaterally Cardio: COMMON NORMALS: regular rate, regular rhythm and No murmurs present (Cardio) RATE: regular rate RHYTHM: regular rhythm GI: COMMON NORMALS: Soft to palpation and No hepatosplenomegaly present AUS CULTATION: Yes normoactive bowel sounds PALPATION: Yes Soft to palpation, No Tenderness to palpation present (GI), No Guarding due to palpation present (GI) and Yes No hepatosplenomegaly present Extremity: COMMON NORMALS: normal to inspection, capillary refill normal, no clubbing, cyanosis or edema, no calf tenderness and no pedal edema Neuro: SENSORIUM/ORIENTATION: Yes oriented to person, Yes oriented to place and Yes oriented to time Skin: COMMON NORMALS: no rashes or lesions noted GENERAL SKIN EXAM: no rashes or lesions noted Course Vital Signs: Vital signs: Vital Signs Temperature 99 F 05/02/22 07:36 Pulse Rate 96 05/02/22 10:14 Respiratory Rate 16 05/02/22 10:14 Blood Pressure 124/76 05/02/22 10:14 Pulse Oximetry 100 05/02/22 10:14 Oxygen Delivery Me thod 05/02/22 07:36 MDM - General Adult Medical Decision Making Labs and imaging reviewed. Pelvic abscess noted on the CT with air-fluid levels. I discussed with radiologist Dr. Kessler feels that is not amenable to placement of a drain. Contacted Dr. Byrne who did her original lap assisted vaginal Hyster. Will admit started on amp gent and clindamycin Dr. Morris will be the attending. Patient to be kept n.p.o. pain medications as appropriate for symptoms. She has been given IV fluids as well and started on fluid m aintenance. Orders written for admission Medical Records I reviewed the patient's medical records. Lab Data I reviewed the patient's lab results. 05/02/22 07:52 05/02/22 07:52 Radiology Impressions Abdomen/Pelvis CT 05/02/22 09:05 IMPRESSION: 1. Large inflammatory pelvic mass in the surgical bed for the hysterectomy measures 7.8 x 8.1 x 9.7 cm. Numerous foci of air. Most consistent with a post operative abscess. 2. 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 Notified Everardo Cavazos DO at 05/02/2022 9:48 AM. Laboratory Results WBC 10.8 10^3/uL (4.0-10.0) H 05/02/22 07:52 RBC 4.30 10^6/uL (4.1-5.3) 05/02/22 07:52 Hgb 11.6 g/dL (11.5-15.3) 05/02/22 07:52 Hct 37.3 % (37.0-47.0) 05/02/22 07:52 MCV 86.7 fl (81-99) 05/02/22 07:52 MCH 27.0 pg (28.0-34.0) L 05/02/22 07:52 MCHC 31.1 g/dL (30.0-36.0) 05/02/22 07:52 RDW 14.2 % (12.1-15.1) 05/02/22 07:52 Plt Count 227 10^3/cmm (130-400) 05/02/22 07:52 MPV 12.6 fL (7.4-10.4) H 05/02/22 07:52 Neut % (Auto) 84.4 % 05/02/22 07:52 Lymph % (Auto) 8.7 % 05/02/22 07:52 [place] % (Auto) 6.0 % 05/02/22 07:52 Eos % (Auto) 0.2 % 05/02/22 07:52 Baso % (Auto) 0.1 % 05/02/22 07:52 Neut # (Auto) 9.10 10^3/uL (1.8-7.7) H 05/02/22 07:52 Lymph # (Auto) 0.9 10^3/uL (0.8-4.8) 05/02/22 07:52 [place] # (Auto) 0.7 10^3/uL (0.2-0.9) 05/02/22 07:52 Eos # (Auto) 0.0 10^3/uL (0.0-0.8) 05/02/22 07:52 Baso # (Auto) 0.0 10^3/uL (0.0-0.1) 05/02/22 07:52 Nucleated RBC % (auto) 0 % 05/02/22 07:52 Nucleated RBCs # 0.0 /100WBC 05/02/22 07:52 Sodium 137 mmol/L (136-145) 05/02/22 07:52 Potassium 4.1 mmol/L (3.5-5.1) 05/02/22 07:52 Chloride 101 mmol/L (98-107) 05/02/22 07:52 Carbon Dioxide 24 mmol/L (22-29) 05/02/22 07:52 Anion Gap 16.1 (5-19) 05/02/22 07:52 BUN 11 mg/dL (6-20) 05/02/22 07:52 Creatinine 0.8 mg/dL (0.5-0.9) 05/02/22 07:52 GFR Calculation 75.9 mL/min (90-130) L 05/02/22 07:52 Glucose 99 mg/dL (65-115) 05/02/22 07:52 Calculated Osmolality 283 mOsm/kg (285-295) L 05/02/22 07:52 Calcium 9.0 mg/dL (8.5-10.5) 05/02/22 07:52 Total Bilirubin 0.8 mg/dL (0.15-1.2) 05/02/22 07:52 AST 15 U/L (0-32) 05/02/22 07:52 ALT 9 U/L (0-33) 05/02/22 07:52 Alkaline Phosphatase 99 U/L (35-105) 05/02/22 07:52 Total Protein 7.2 g/dL (6.6-8.7) 05/02/22 07:52 Albumin 4.2 g/dL (3.5-5.2) 05/02/22 07:52 Globulin 3.0 g/dL (1.3-4.6) 05/02/22 07:52 Urine Color Light yellow (Yellow) 05/02/22 08:21 Urine Appearance Sl hazy (CLEAR) A 05/02/22 08:21 Urine pH 5 (5-7) 05/02/22 08:21 Ur Specific [place] 1.020 (1.005-1.030) 05/02/22 08:21 Urine Protein Trace (Negative) 05/02/22 08:21 Urine Glucose (UA) Norm (Normal) 05/02/22 08:21 Urine Ketones 1+ (Negative) H 05/02/22 08:21 Urine Blood 2+ (Negative) H 05/02/22 08:21 Urine Nitrate Negative (Negative) 05/02/22 08:21 Urine Bilirubin Neg (Negative) 05/02/22 08:21 Urine Urobilinogen Norm mg/dL (Negative) 05/02/22 08:21 Ur Leukocyte Esterase Trace (Negative) H 05/02/22 08:21 Urine RBC 5-10 /hpf (0-2) H 05/02/22 08:21 Urine WBC 0-4 /hpf (0-5) H 05/02/22 08:21 Ur Squamous Epith Cells 0-4 /hpf (0-5) H 05/02/22 08:21 Amorphous Sediment Not Reportable 05/02/22 08:21 Urine Bacteria 1+ /hpf (NONE) H 05/02/22 08:21 Urine Mucus 3+ /hpf 05/02/22 08:21 Discharge Plan Discharge Patient Disposition: Admitted As Inpatient Clinical Impression: Abscess of female pelvis, Postoperative anemia, Status post laparoscopic assisted vaginal hysterectomy (LAVH) Condition: Stable Prescriptions: No Action travoprost [Travatan Z] 0.004 % drops 1 drp ophthalmic (eye) DAILY Rx Instructions: both eyes dorzolamide-timolol [Cosopt] 22.3-6.8 mg/mL drops 1 drp ophthalmic (eye) BID Label Comments: Right eye BID Rx Instructions: right eye Colace 100 mg capsule 100 mg PO DAILY ferrous sulfate [Iron (ferrous sulfate)] 325 mg (65 mg iron) tablet 325 mg PO BID Qty: 60 0RF Referrals: Chip Duque MD [Primary Care Provider] - Patient Instructions: Opioid Safety, Pain Management Coding Level of Care Code ED Director Of Social Services for Zohreh Quigley
[2022-05-02] MEDS: sodium chloride 0.9% 1,000 ML 999 ML IV (07:57)
[2022-05-02 08:11] LABS: Basophils % 0.1 %; Eosinophils % 0.2 %; Hematocrit 37.3 % (37.0-47.0); Hemoglobin 11.6 g/dL (11.5-15.3); Lymphocytes # 0.9 10^3/uL (0.8-4.8); Lymphocytes % 8.7 %; Mean Corpuscular HGB Conc 31.1 g/dL (30.0-36.0); Mean Corpuscular Volume 86.7 fl (81-99); Mean Platelet Volume 12.6 fL (7.4-10.4); Monocytes # 0.7 10^3/uL (0.2-0.9); Neutrophils % 84.4 %; Nucleated Red Blood Cells % 0 %; Platelet Count 227 10^3/cmm (130-400); Red Cell Distribution Width 14.2 % (12.1-15.1); White Blood Count 10.8 10^3/uL (4.0-10.0)
[2022-05-02 08:30] LABS: Alanine Aminotransferase 9 U/L (0-33); Albumin Level 4.2 g/dL (3.5-5.2); Alkaline Phosphatase 99 U/L (35-105); Anion Gap 16.1 (5-19); Aspartate Amino Transferase 15 U/L (0-32); Blood Urea Nitrogen 11 mg/dL (6-20); Carbon Dioxide 24 mmol/L (22-29); Chloride 101 mmol/L (98-107); Glomerular Filtration Rate 75.9 mL/min (90-130); Glucose 99 mg/dL (65-115); Osmolality Calculated 283 mOsm/kg (285-295); Potassium 4.1 mmol/L (3.5-5.1); Sodium 137 mmol/L (136-145); Total Bilirubin 0.8 mg/dL (0.15-1.2); Total Protein 7.2 g/dL (6.6-8.7)
[2022-05-02 08:59] LABS: Urine Appearance SL Hazy (CLEAR); Urine Color Light yellow (Yellow); pH Urine 5 (5-7)
[2022-05-02 09:00] LABS: Bilirubin Urine Neg (Negative); Blood Urine 2+ (Negative); Glucose Urine UA Norm (Normal); Ketones Urine 1+ (Negative); Leukocyte Esterase Urine Trace (Negative); Nitrate Urine Negative (Negative); Protein Urine Trace (Negative); Urobilinogen Urine Norm (Negative)
[2022-05-02 09:01] LABS: Add Urine Microscopic? YES; Bacteria Urine 1+ /hpf; Mucus Urine 3+ /hpf; Squamous Epithelial Cell Urine 0-4 /hpf (0-5); WBC Urine 0-4 /hpf (0-5)
[2022-05-02 09:02] LABS: Add Urine Culture? No
--- NOTE | 2022-05-02 09:05 | CT_ITS ---
WS: [id number] CT ABDOMEN AND PELVIS WITH CONTRAST HISTORY: Abdominal pain, hysterectomy 3 weeks ago. TECHNIQUE: Imaging performed of the abdomen and pelvis with IV contrast. Single phase imaging of the abdomen. Coronal and sagittal reformats are submitted. All CT scans at [facility] use at [address] one of these dose optimization techniques: automated exposure control; mA and/or kV adjustment per patient size (includes targeted exams where dose is matched to clinical indication); or iterative re construction. IV CONTRAST: Omnipaque 350; 100 mL IV. Oral contrast: No DLP: 714.73 mGy.cm COMPARISON: Pelvic ultrasound 04/12/2022. Lower thorax: Lung bases are clear. Heart is normal size. No hiatal hernia. Liver/biliary system: Normal size with no intrahepatic dilatation. Gallbladder: Normal. No gallstones or wall thickening. No pericholecystic fluid. Pancreas: Normal size pancreas and pancreatic duct. No adjacent inflammation. Spleen: Normal size spleen. No mass or infarct. Adrenal glands: Normal. Right kidney: Normal RIGHT kidney. No obstruction. The distal RIGHT ureter is closely associated with inflammatory process in the pelvis. Left kidney: Normal RIGHT kidney. No obstruction. Distal LEFT ureter demonstrates mild distention. Ur eter is closely associated with the large inflammatory process in the pelvis. Aorta: Normal. Lymphadenopathy: None. Free fluid: Small amount of free fluid in the pelvis, slightly greater to the RIGHT of midline. GI tract: Normal stomach and small bowel. No obstruction. No colon obstruction. The distal colon is b eing displaced by the inflammatory mass in the pelvis. Abdominal wall: Unremarkable abdominal wall. No hernia. Pelvis: Patient is status post recent hysterectomy. There is a large inflammatory mass containing num erous foci of air with wall enhancement and thickening. Consistent with a contained abscess at the mello rgical bed measuring 7.8 x 8.1 cm. Extends over length of 9.7 cm beginning near the vaginal cuff. The re are a few small foci of air at the vaginal cuff. There are small filling defects within the ovarian veins. Suspicious for ovarian vein thrombophlebiti s. The ovarian suspensory ligaments are mildly enhancing. Bones: Unremarkable. CT/CT abdomen pelvis w con* [id number] IMPRESSION: 1. Large inflammatory pelvic mass in the surgical bed for the hysterectomy fred[place] sures 7.8 x 8.1 x 9.7 cm. Numerous foci of air. Most consistent with a post ope rative abscess. 2. 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 Notified Everardo Cavazos DO at 05/02/2022 9:48 AM.
[2022-05-02] MEDS: iohexol 350 mg/mL 500 mL Btl (per mL) IV (09:21)
[2022-05-02] MEDS: sodium chlor 0.9% + KCl 20 mEq 20 MEQ/1,000 ML BAG 125 MEQ IV (10:29)
[2022-05-02] MEDS: clindamycin 900 MG/50 ML PREMIX 100 MG IV ×2 (10:31→19:31)
[2022-05-02] MEDS: morphine 4 mg/mL SDV 1 mL IVP (11:04)
[2022-05-02] MEDS: ondansetron 2 mg/ML SDV 2 mL 4 MG IVP (11:11)
[2022-05-02] MEDS: ampicillin 2,000 MG in sodium chloride 0.9% (plus) 50 ML 100 MG IV (11:35)
--- NOTE | 2022-05-02 15:53 | P.PN_ITS ---
Subjective Subjective: Mrs. Willoughby 52 y/o female status post laparoscopic-assisted vaginal hysterectomy with bilateral salpingo-oophorectomy and single incision mid urethral sling 3 weeks ago. Came to the emergency room with pelvic pain. Vitals/I&O/Wt Last Vital Signs Temp 100.8 F H 05/02/22 14:24 Pulse 86 05/02/22 14:24 Resp 16 05/02/22 14:24 BP 102/64 05/02/22 14:24 Pulse Ox 96 05/02/22 14:24 O2 Del Method 05/02/22 14:24 05/02/22 05/02/22 05/02/22 06:59 14:59 22:59 Intake Total 1214.25 / 1214.25 Balance 1214.25 / 1214.25 Weight last 48 hrs Weight 81.647 kg Physical Exam Const: GENERAL APPEARANCE: cooperative, comfortable, well kempt, well developed and well hydrated HENMT: COMMON NORMALS: normocephalic, atraumatic, hearing grossly normal bilaterally and Normal external nose present HEAD & SCALP: normocephalic and atraumatic NOSE: Normal external nose present Eye: COMMON NORMALS: Equal, round and reactive pupils present, conjunctivae normal and no scleral icterus CONJUNCTIVA: Yes conjunctivae normal PUPIL: Yes Equal, round and reactive pupils present Neck/C-Spine: COMMON NORMALS: no JVD Chest: CHEST: Yes Symmetrical chest wall rise Cardio: COMMON NORMALS: no JVD, regular rate and regular rhythm RATE: regular rate RHYTHM: regular rhythm GI: COMMON NORMALS: Soft to palpation PALPATION: Yes Soft to palpation : EXTERNAL FEMALE EXAM: Yes normal appearance of the urethra SPECULUM E XAM - VAGINA: Yes vaginal bleeding Amount: scant and small/minimal SPECULUM EXAM - CERVIX: Yes Cervix absent BIMANUAL EXAM - VAGINA & UTERUS: Yes uterus absent OB/EXTERNAL & SPECULUM: vaginal bleeding OTHER: Pelvic pain Psych: APPEARANCE: Yes well kempt Data 05/02/22 07:52 05/02/22 07:52 Micro: Microbiology 05/02/22 10:28 Blood Culture - Preliminary Blood SPECIMEN COLLECTED 05/02/22 10:08 Blood Culture - Preliminary Blood SPECIMEN COLLECTED A&P Assessment and plan (1) Abscess of female pelvis: Mrs Willoughby status post LAVH and SIS 3 weeks ago cam to ER with Pelvic pain. CT scan at the ER show a possible vaginla cuff abcess. The patietn was counseled regarding findings and I&D was recommended. She has been started on triple antibiotics. Attestations Medical Necessity Statement*: In my professional opinion per admitting diagnosis Coding Level of Care Code Acute Code for Chg Fwd Diagnoses Abscess of female pelvis N73.9
[2022-05-02] MEDS: sodium chloride 0.9% 1,000 ML 30 ML IV (16:11)
[2022-05-02] MEDS: acetaminophen 1,000 MG/100 ML PIGGYBACK 400 MG IV (16:11)
--- NOTE | 2022-05-02 16:47 | P.ANESASSM_ITS ---
Pre-Anesthetic Assessment Height/Weight: Height 1.7 m Weight 81.647 kg Temp Pulse Resp BP Pulse Ox O2 Del Method 101.4 F H 90 18 112/54 97 05/02/22 16:03 05/02/22 16:03 05/02/22 16:03 05/02/22 16:03 05/02/22 16:03 05/02/22 16:03 Preop Diagnosis: Abnormal uterine bleeding Operation Date: 05/02/22 16:30 Proposed Procedures p Incision And Drainage vaginal cuff abscess(Not Applicable) - Phoenix Monte MD Familial anesthetic complications: None Was Beta Isabella taken within 24 hours: N/A Was Clonidine taken within 24 hours: N/A Last intake: Intake Last Liquid Date 05/02/22 Last Liquid Time 06:00 Last Solid Date 05/01/22 Last Solid Time 19:00 Social No alcohol and No tobacco Exam alert, oriented x 3, clear to auscultation bilaterally and regular rate & rhythm Airway Submandibular: within normal limits Cervical ROM: within normal limits Mallampati: Class II Dentition: full CV/HEM Anemia Anesthetic Plan ASA status: 2 Anesthesia: General Medications/Allergies Home Medications Medication Instructions Recorded Confirmed Last Taken Type dorzolamide 22.3 mg-timolol 6.8 1 drp ophthalmic (eye) BID 12/28/21 05/02/22 05/01/22 History mg/mL eye drops (Cosopt) travoprost 0.004 % eye drops 1 drp ophthalmic (eye) DAILY 12/28/21 05/02/22 05/01/22 History (Travatan Z) ferrous sulfate 325 mg (65 mg 325 mg PO BID Anemia #60 tabs 04/12/22 05/02/22 05/01/22 Rx iron) tablet (Iron (ferrous sulfate)) docusate sodium 100 mg capsule 100 mg PO DAILY Constipation 04/24/22 05/02/22 05/01/22 History (Colace) Allergies Allergy/AdvReac Type Severity Reaction Status Date / Time No Known Allergies Allergy Verified 05/02/22 07:36 Current Medications Generic Name Dose Route Start Last Admin Trade Name Freq PRN Reason Stop Dose Admin Potassium Chloride/Sodium Chloride 20 meq in 1,000 mls @ 125 mls/hr 05/02/22 10:00 05/02/22 10:29 Sodium Chlor 0.9% + Kcl 20 Meq IV 125 mls/hr .Q8H SAILAJA Administration Gentamicin Sulfate 570 mg/ 114.25 mls @ 114.25 mls/hr 05/02/22 10:30 05/02/22 12:42 Sodium Chloride IV Infused Q24H SAILAJA Infusion Sodium Chloride 1,000 mls @ 30 mls/hr 05/02/22 16:00 05/02/22 16:11 Sodium Chloride 0.9% IV 05/03/22 15:59 30 mls/hr .Q24H SAILAJA Administration PFSH Anesthesia Medical History Abnormal uterine bleeding (AUB) Fibroids, intramural No pertinent past medical history neghx: htn,dm,thyroid,dvt/pe PCP: Dr. Duque Surgical History History of hysterectomy (~04/11/22) LAVH, BSO, Single incision mid urethral sling: for AUB and FELIBERTO-- performed Dr. Monte Hx of cataract extraction (~1995) 1995 2018 Hx of section 1) 01/30/1999, Perfomed at [facility] in [place], [place]. 2) 09/26/2000 Performed at [facility] in [place], [place]. 3) 05/26/2003 Performed at [facility] in [place], [place]. Hx of eye surgery 03/1994, Correction of Detached Retina 07/1994, Correction of Detached Retina Hx of tubal ligation (~2003) Preformed at the time of last in 2003 Family History Mother Family history of thyroid problem Hypertension Hyperlipidemia Father Hypertension Denies family history of Colon cancer Ovarian cancer Diabetes Heart disease Breast cancer Uterine cancer Stroke Social History Smoking and tobacco status: never smoked Female Reproductive History Date of last menstrual period: 03/19/22 Data Anesthesia 05/02/22 07:52 05/02/22 07:52 Short CBC 05/02/22 Range/Units 07:52 WBC 10.8 H (4.0-10.0) 10^3/uL Hgb 11.6 (11.5-15.3) g/dL Hct 37.3 (37.0-47.0) % MCV 86.7 (81-99) fl Plt Count 227 (130-400) 10^3/cmm Neut % (Auto) 84.4 % Neut # (Auto) 9.10 H (1.8-7.7) 10^3/uL BMP 05/02/22 07:52 Sodium 137 Potassium 4.1 Chloride 101 Carbon Dioxide 24 BUN 11 Creatinine 0.8 Glucose 99 Calcium 9.0 Liver Function 05/02/22 Range/Units 07:52 Total Bilirubin 0.8 (0.15-1.2) mg/dL AST 15 (0-32) U/L ALT 9 (0-33) U/L Alkaline Phosphatase 99 (35-105) U/L Albumin 4.2 (3.5-5.2) g/dL Urine 05/02/22 Range/Units 08:21 Urine Color Light yellow (Yellow) Urine Appearance Sl hazy A (CLEAR) Urine pH 5 (5-7) Ur Specific [place] 1.020 (1.005-1.030) Urine Protein Trace (Negative) Urine Glucose (UA) Norm (Normal) Urine Ketones 1+ H (Negative) Urine Nitrate Negative (Negative) Urine Bilirubin Neg (Negative) Ur Leukocyte Esterase Trace H (Negative) Urine RBC 5-10 H (0-2) /hpf Urine WBC 0-4 H (0-5) /hpf Microbiology 05/02/22 10:28 Blood Culture - Preliminary Blood SPECIMEN COLLECTED 05/02/22 10:08 Blood Culture - Preliminary Blood SPECIMEN COLLECTED Cardiac Studies: No Data to Display
--- NOTE | 2022-05-02 17:58 | P.OP_ITS ---
Operative Report Date of procedure: May 02, 2022 Pre-op diagnosis: Preop Diagnosis post hysterectomy abscess Post-op diagnosis: Hematoma Procedure done: Vaginal cuff incision and drainage Specimens removed/disposition: Cultures taken Surgeon: Phoenix Monte MD Estimated blood loss: 200 ml of old blood drained from pelvis. 100 mL from procedure IV fluids (mL): 700 Urine output (mL): 200 Findings: 200 mL of old blood. No pus was noted. Procedure: The patient was taken to the operating room where she underwent general endotracheal anesthesia without difficulty . She was placed in a dorsal lithotomy position in formerly named [facility]. A surgical pause was then performed. A bivalve speculum was placed in the vagina to gain visualization of the vaginal cuff suture. Suture was released and accessed to cul-de-sac. Suction tube was introduced and 200 mL of old blood were drained. Then copious irrigation was performed. No further drainage or pus was noted. A FANTA drain catheter was placed in the cul-de-sac and secure to the edges of vaginal cuff with 3-0 Vicryl. Remaining of vaginal cuff was up reapproximated with 2-0 Vicryl. All instruments were removed. Sponge, lap, needle, and instrument counts were correct X2. The patient was repositioned, extubated and transported to recovery room in stable condition.
--- NOTE | 2022-05-02 18:25 | P.PCN_ITS ---
PACU note Narrative: VSS, Good respiratory effort, report to TANKROOM WORKER Exam: awake
--- NOTE | 2022-05-02 18:25 | PM.PACU ---
PACU note Narrative: VSS, Good respiratory effort, report to MODELING AGENCY MANAGER Exam: awake
[2022-05-02] MEDS: dextrose 5%-lactated ringers 1,000 ML 125 ML IV (19:29)
[2022-05-02] MEDS: cefTRIAXone 2,000 MG in sodium chloride 0.9% (plus) 50 ML 100 MG IV (20:09)
--- NOTE | 2022-05-02 23:45 | PC.NURSE ---
Patient she sweating at this time. She reports feeling like her fever has broke. Her temperature was 97.6. She denies pain at this time.
[2022-05-03] MEDS: ketorolac 30 mg/mL INJ IVP ×2 (00:41→06:30)
[2022-05-03 02:05] VITALS: BP 95/60; PULSE 62; RESP 17; TEMP 36.4; O2SAT 97
[2022-05-03] MEDS: clindamycin 900 MG/50 ML PREMIX 100 MG IV ×3 (03:30→19:45)
[2022-05-03] MEDS: dextrose 5%-lactated ringers 1,000 ML 125 ML IV (04:35)
--- NOTE | 2022-05-03 05:05 | PC.NURSE ---
FANTA drain was drained per Dr. Monte's verbal order given while he was here on the floor this morning and it had 20 ml of blood in it. Dr. Monte then came in and talked with the patient and let her know if her drainage continues to be small he will take out the FANTA drain later today and that she will be staying for at least 48 hours fever free.
[2022-05-03 05:21] LABS: Hematocrit 37.2 % (37.0-47.0); Hemoglobin 11.4 g/dL (11.5-15.3); Mean Corpuscular HGB Conc 30.6 g/dL (30.0-36.0); Mean Corpuscular Hemoglobin 27.2 pg (28.0-34.0); Mean Corpuscular Volume 88.8 fl (81-99); Mean Platelet Volume 12.3 fL (7.4-10.4); Platelet Count 176 10^3/cmm (130-400); Red Blood Count 4.19 10^6/uL (4.1-5.3); Red Cell Distribution Width 14.1 % (12.1-15.1); White Blood Count 11.7 10^3/uL (4.0-10.0)
[2022-05-03 05:45] VITALS: BP 100/66; PULSE 61; RESP 17; TEMP 36.4; O2SAT 99
--- NOTE | 2022-05-03 07:16 | ANE.PACU2 ---
Inpatient post-anesthesia follow up: Airway intact: Yes Vital signs: Temperature 97.6 F Pulse Rate 61 Respiratory Rate 17 Blood Pressure 100/66 Pulse Oximetry 99 Oxygen Delivery Me thod Room Air Oxygen Flow Rate 6 Fraction of Inspir ed Oxygen Hydration adequate: Yes Nausea and vomiting: No Pain level: 3 Mental status: Baseline
--- NOTE | 2022-05-03 08:45 | P.PN_ITS ---
Subjective Subjective: Mrs. Willoughby 52 y/o female status post laparoscopic-assisted vaginal hysterectomy with bilateral salpingo-oophorectomy and single incision mid urethral sling 3 weeks ago. Came to the emergency room with pelvic pain. Vitals/I&O/Wt Last Vital Signs Temp 97.6 F 05/03/22 05:45 Pulse 61 05/03/22 05:45 Resp 17 05/03/22 05:45 BP 100/66 05/03/22 05:45 Pulse Ox 99 05/03/22 05:45 O2 Del Method 05/03/22 05:45 O2 Flow Rate 6 05/02/22 18:10 05/02/22 05/03/22 05/03/22 22:59 06:59 14:59 Intake Total 2910 / 4124.25 1050 / 5174.25 280 / 280 Output Total 1700 / 1700 760 / 2460 Balance 1210 / 2424.25 290 / 2714.25 280 / 280 Weight last 48 hrs Weight 81.647 kg Physical Exam Narrative: GA: Alert and oriented ?3. HEENT: WNL. Heart: Regular rate and rhythm. Lungs: Clear to auscultation bilaterally. Abdomen: Bowel sounds present, nontender. DEBURRING TECHNICIAN: No bleeding. Extremities: No edema, no cyanosis, no calves pain. Urinary Catheter Management: Hanson: Cath Placed During This Visit: yes, but has since been removed by the nurse Reason for Continuing Indwelling Catheter: Decision to DC Catheter Date Urinary Catheter Removed: 05/03/22 Time Urinary Catheter Discontinued: 05:00 Data 05/03/22 05:00 05/02/22 07:52 Micro: Microbiology 05/02/22 10:28 Blood Culture - Preliminary Blood SPECIMEN COLLECTED 05/02/22 10:08 Blood Culture - Preliminary Blood SPECIMEN COLLECTED A&P Assessment and plan (1) Pelvic hematoma, female: Mrs. Willoughby 52-year-old female is status post pelvic hematoma drainage postoperative day 1. She is afebrile hemodynamically stable postoperative day 1. Pain well under control. Ambulating without difficulty. Adequate urine output. Minimal drainage from the FANTA drain catheter. On IV antibiotic therapy, which will continue until she is 48 hours afebrile. Attestations Medical Necessity Statement*: In my professional opinion per admitting diagnosis Coding Level of Care Code Acute Code for Chg Fwd Diagnoses Pelvic hematoma, female N94.89
[2022-05-03] MEDS: docusate sodium 100 mg Capsule PO (08:58)
[2022-05-03] MEDS: ferrous sulfate EC 325 mg Tablet PO (08:58)
[2022-05-03 10:00] VITALS: BP 102/56; PULSE 98; RESP 16; TEMP 36.6; O2SAT 98
[2022-05-03] MEDS: ibuprofen 800 mg tablet PO (14:57)
[2022-05-03] MEDS: cefTRIAXone 2,000 MG in sodium chloride 0.9% (plus) 50 ML 100 MG IV (21:56)
[2022-05-03 22:51] VITALS: BP 100/60; PULSE 80; RESP 16; TEMP 36.7; O2SAT 98
[2022-05-04 04:50] VITALS: BP 105/71; PULSE 72; RESP 16; TEMP 36.8; O2SAT 97
[2022-05-04] MEDS: clindamycin 900 MG/50 ML PREMIX 100 MG IV ×2 (05:06→14:38)
[2022-05-04 08:00] VITALS: TEMP 36.8
[2022-05-04] MEDS: ferrous sulfate EC 325 mg Tablet PO ×2 (08:21→17:42)
[2022-05-04 10:20] VITALS: BP 100/64; PULSE 80; RESP 18; TEMP 36.6
[2022-05-04 14:12] VITALS: BP 105/66; PULSE 76; RESP 18; TEMP 37.1
--- NOTE | 2022-05-04 14:20 | PC.NURSE ---
FANTA drain emptied at this time. 30 mls of Dark red/ brown colored blood.
[2022-05-04] MEDS: ibuprofen 800 mg tablet PO (14:37)
--- NOTE | 2022-05-04 18:54 | P.DS_ITS ---
Discharge Providers MULTIPLE SPINDLE ROUTER OPERATOR Date of Admission: 05/02/22 10:00 Date of Discharge: 05/04/22 Attending Provider at Admission: Phoenix Monte MD Attending Provider at Discharge: Phoenix Monte MD Primary Care Provider: Chip Duque MD Diagnoses at Discharge Discharge Diagnosis (1) Pelvic hematoma, female: Status: Acute Reason for Visit Reason for Visit: post surgery hysterectomy, fever, pain Hospital Course Hospital Course Mrs. Willoughby 52-year-old female status post laparoscopic-assisted vaginal hysterectomy and single incision mid urethral sling 2 weeks ago. Came to the emergency room with pelvic pain. Upon evaluation at the emergency room a CT scan showed a collection of fluid was in the pelvis subjective of a pelvic abscess. Patient have experiencing fever. White count was within normal limits. However pain was significant. She was taken to the OR and transvaginal cuff aspiration of hematoma was performed. Pus was noted. However cultures reported gram negative rods. She has been afebrile over 48 hours, she is hemodynamically stable. Changed parenteral antibiotic therapy to oral antibiotics treatment. She was counseled regarding pelvic rest for 6 weeks (no sex, no tampons, no vaginal douches) and limitations on physical activity and weight lifting. Return to the emergency room if any fever, increased bleeding or pain. Physical Exam Narrative: GA: Alert and oriented ?3. HEENT: WNL. Heart: Regular rate and rhythm. Lungs: Clear to auscultation bilaterally. Abdomen: Bowel sounds present, nontender, INTERACTIVE MEDIA DIRECTOR: spotting bleeding. FANTA drainage with minimal fluid. Extremities: No edema, no cyanosis, no calves pain. Urinary Catheter Management: Hanson: Cath Placed During This Visit: yes, but has since been removed by the nurse Reason for Continuing Indwelling Catheter: Decision to DC Catheter Date Urinary Catheter Removed: 05/03/22 Time Urinary Catheter Discontinued: 05:00 History History History 3 Term 3 0 Miscarriages/Ectopic 0 Living Children 3 Discharge Data Studies Completed and Pending Completed Studies During Hospitalization Category Date Time Status CT abdomen pelvis w con* [id number] Stat Cat Scan 05/02/22 09:05 Completed Pending at discharge Category Date Time Status Abscess Culture and Gram Stain Routine Lab 05/02/22 17:10 Results Anaerobic Culture Routine Lab 05/02/22 17:10 Results Blood Culture Stat Lab 05/02/22 10:28 Results Radiology Impressions Abdomen/Pelvis CT 05/02/22 09:05 IMPRESSION: 1. Large inflammatory pelvic mass in the surgical bed for the hysterectomy measures 7.8 x 8.1 x 9.7 cm. Numerous foci of air. Most consistent with a post operative abscess. 2. 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 Notified Everardo Cavazos DO at 05/02/2022 9:48 AM. Laboratory Results WBC 11.7 10^3/uL (4.0-10.0) H 05/03/22 05:00 RBC 4.19 10^6/uL (4.1-5.3) 05/03/22 05:00 Hgb 11.4 g/dL (11.5-15.3) L 05/03/22 05:00 Hct 37.2 % (37.0-47.0) 05/03/22 05:00 MCV 88.8 fl (81-99) 05/03/22 05:00 MCH 27.2 pg (28.0-34.0) L 05/03/22 05:00 MCHC 30.6 g/dL (30.0-36.0) 05/03/22 05:00 RDW 14.1 % (12.1-15.1) 05/03/22 05:00 Plt Count 176 10^3/cmm (130-400) 05/03/22 05:00 MPV 12.3 fL (7.4-10.4) H 05/03/22 05:00 Neut % (Auto) 84.4 % 05/02/22 07:52 Lymph % (Auto) 8.7 % 05/02/22 07:52 [place] % (Auto) 6.0 % 05/02/22 07:52 Eos % (Auto) 0.2 % 05/02/22 07:52 Baso % (Auto) 0.1 % 05/02/22 07:52 Neut # (Auto) 9.10 10^3/uL (1.8-7.7) H 05/02/22 07:52 Lymph # (Auto) 0.9 10^3/uL (0.8-4.8) 05/02/22 07:52 [place] # (Auto) 0.7 10^3/uL (0.2-0.9) 05/02/22 07:52 Eos # (Auto) 0.0 10^3/uL (0.0-0.8) 05/02/22 07:52 Baso # (Auto) 0.0 10^3/uL (0.0-0.1) 05/02/22 07:52 Nucleated RBC % (auto) 0 % 05/02/22 07:52 Nucleated RBCs # 0.0 /100WBC 05/02/22 07:52 Sodium 137 mmol/L (136-145) 05/02/22 07:52 Potassium 4.1 mmol/L (3.5-5.1) 05/02/22 07:52 Chloride 101 mmol/L (98-107) 05/02/22 07:52 Carbon Dioxide 24 mmol/L (22-29) 05/02/22 07:52 Anion Gap 16.1 (5-19) 05/02/22 07:52 BUN 11 mg/dL (6-20) 05/02/22 07:52 Creatinine 0.8 mg/dL (0.5-0.9) 05/02/22 07:52 GFR Calculation 75.9 mL/min (90-130) L 05/02/22 07:52 Glucose 99 mg/dL (65-115) 05/02/22 07:52 Calculated Osmolality 283 mOsm/kg (285-295) L 05/02/22 07:52 Calcium 9.0 mg/dL (8.5-10.5) 05/02/22 07:52 Total Bilirubin 0.8 mg/dL (0.15-1.2) 05/02/22 07:52 AST 15 U/L (0-32) 05/02/22 07:52 ALT 9 U/L (0-33) 05/02/22 07:52 Alkaline Phosphatase 99 U/L (35-105) 05/02/22 07:52 Total Protein 7.2 g/dL (6.6-8.7) 05/02/22 07:52 Albumin 4.2 g/dL (3.5-5.2) 05/02/22 07:52 Globulin 3.0 g/dL (1.3-4.6) 05/02/22 07:52 Urine Color Light yellow (Yellow) 05/02/22 08:21 Urine Appearance Sl hazy (CLEAR) A 05/02/22 08:21 Urine pH 5 (5-7) 05/02/22 08:21 Ur Specific [place] 1.020 (1.005-1.030) 05/02/22 08:21 Urine Protein Trace (Negative) 05/02/22 08:21 Urine Glucose (UA) Norm (Normal) 05/02/22 08:21 Urine Ketones 1+ (Negative) H 05/02/22 08:21 Urine Blood 2+ (Negative) H 05/02/22 08:21 Urine Nitrate Negative (Negative) 05/02/22 08:21 Urine Bilirubin Neg (Negative) 05/02/22 08:21 Urine Urobilinogen Norm mg/dL (Negative) 05/02/22 08:21 Ur Leukocyte Esterase Trace (Negative) H 05/02/22 08:21 Urine RBC 5-10 /hpf (0-2) H 05/02/22 08:21 Urine WBC 0-4 /hpf (0-5) H 05/02/22 08:21 Ur Squamous Epith Cells 0-4 /hpf (0-5) H 05/02/22 08:21 Amorphous Sediment Not Reportable 05/02/22 08:21 Urine Bacteria 1+ /hpf (NONE) H 05/02/22 08:21 Urine Mucus 3+ /hpf 05/02/22 08:21 Vitals Last Vital Signs Temp 98.7 F 05/04/22 14:12 Pulse 76 05/04/22 14:12 Resp 18 05/04/22 14:12 BP 105/66 05/04/22 14:12 Pulse Ox 97 05/04/22 04:50 O2 Del Method 05/04/22 14:12 O2 Flow Rate 6 05/02/22 18:10 Discharge Plan Discharge Patient Disposition: Home Condition: Stable Prescriptions: New acetaminophen 325 mg capsule 325 mg PO Q4H PRN (Reason: fever or postoperative pain) Qty: 60 0RF ibuprofen 800 mg tablet 800 mg PO TID PRN (Reason: pain) Qty: 60 0RF hydrocodone-acetaminophen 5-325 mg tablet 1 tab PO Q4H PRN (Reason: pain) Qty: 10 0RF sulfamethoxazole-trimethoprim 800-160 mg tablet 1 tab PO BID 14 Days Qty: 28 0RF metronidazole 500 mg tablet 500 mg PO BID 14 Days Qty: 28 0RF Continued travoprost [Travatan Z] 0.004 % drops 1 drp ophthalmic (eye) DAILY Rx Instructions: both eyes dorzolamide-timolol [Cosopt] 22.3-6.8 mg/mL drops 1 drp ophthalmic (eye) BID Label Comments: Right eye BID Rx Instructions: right eye Colace 100 mg capsule 100 mg PO DAILY ferrous sulfate [Iron (ferrous sulfate)] 325 mg (65 mg iron) tablet 325 mg PO BID Qty: 60 0RF Discharge Orders: Discharge Order (Routine); Ordered 05/04/22 Ordered By: Phoenix Monte Referrals: Chip Duque MD [Primary Care Provider] - Discharge Diet: Usual diet Discharge Activity: Limit activity as instructed Patient Instructions: Opioid Safety, Pain Management Activity Restrictions/Additional Instructions: 1. Please call [facility] clinic on next working day to make your post-operative appointment in 2 weeks. 2. Please stay home until you come back to the clinic on first post-operative check up. 3. Please follow instructions on your medications CAREFULLY. 4. If you have abdominal incision, do not cover it unless dressing is necessary because of drainage. OK to shower, but avoid bath. Leave steri-strips until they fall off. If they are still on one week after surgery, you may remove them. 5. If you had vaginal surgery or vaginal repair, Dr. Monte may instruct you to take SITZ bath. 6. Yellow, blood tinged odorous vaginal discharge is usually normal after hysterectomy or vaginal surgeries. 7. No sexual intercourse, tampons, or douches until you are completely released from the post-operative care. 8. Avoid constipation by eating right and maybe using some Metamucil or Milk of Magnesia. 9. All prescription refills are given during the working hours. Please do no wait till it runs out. Call the clinic at [phone] before your medication runs out. The clinic will get in touch with your doctor to prescribe medications if necessary. 10. Please remain within 40 mile radius from our hospital because emergencies do happen now and then during the post-operative period. 11. If you have stairs at home, take one step at a time slowly and minimize the number of trips. It helps to stay in one floor for the next few days. No lifting except what you can lift by one hand until you are released from the post-operative care. 12. Driving is discouraged until you are well healed. It may be 3-4 weeks before you feel strong enough to drive. You should be able to turn and look through the rear window without pain and you should be able to push the brake pedal very hard without pain before you drive. No fast rules, but SAFETY should be your primary concern. DO NOT drive if you are on sedating medications such as narcotics. 13. Call the clinic (during working hours) to make urgent appointment or go to the Emergency room, if any of the following occurs: i. Vaginal bleeding becomes heavy, more than a period. ii. Incision becomes red and sore, or drains pus. iii. Your temperature is over 100.4 or you have chill. iv. IV site becomes red and swollen (a little ``knot?? is usually OK) v. Persistent nausea and vomiting vi. Persistent constipation or diarrhea vii. Rash or allergic reaction to medications. Discharge Attestations MULTIPLE SPINDLE ROUTER OPERATOR Time Spent in Discharge Care*: greater than 30 min Coding Level of Care Code Acute Code for Chg Fwd Diagnoses Pelvic hematoma, female N94.89
--- NOTE | 2022-05-04 19:07 | PC.NURSE ---
174 DR. RUFF HERE AND PATIENT WAS IN TAKEN TO OB 3 WHERE SHE WAS PLACED IN [facility] AFTER EVERYTHING GATHERED UP FOR PROCEDURE. PATIENT WAS PLACED IN [facility] AND THEN DR. RUFF REMOVED THE FANTA DRAIN WITHOUT DIFFICULTY THEN PUDENDEL DONE WITH LIDOCAINE 2% BY DR. RUFF AND THEN STITCHES PLACED TO CLOSE CUFF. PATIENT TOLERATED PROCEDURE WELL AND PATIENT WAS TAKEN BACK TO HER ROOM. PATIENT WAS GIVEN ON INSTRUCTIONS ON HOME CARE, ETC. THIS JOY LOADING MACHINE OPERATOR REINFORCED THOSE INSTRUCTIONS. PATIENT VOICES UNDERSTANDING.
[2022-05-04 19:41] VITALS: BP 105/66; PULSE 76; RESP 18; TEMP 36.9
[2022-05-04 19:43] VITALS: BP 105/66; PULSE 76; RESP 18; TEMP 36.9
== END 2022-05-04 19:44 | disposition home or self-care (01) | DRG 921 ==
LOC: ER 10:30 → OBGYN 10:38
PROVIDERS: Admitting Provider Obstetrics & Gynecology; Emergency Provider Family Medicine; PCP Family Medicine; Visit Provider Obstetrics & Gynecology
PROC: 0UCG7ZZ Extirpation of Matter from Vagina, Via Natural or Artificial Opening (ICD-10-PCS; principal; 2022-05-02 16:30)
DX: N99.840 Postprocedural hematoma of a genitourinary system organ or structure following a genitourinary system procedure (principal); Z90.710 Acquired absence of both cervix and uterus; Z90.722 Acquired absence of ovaries, bilateral; Z90.79 Acquired absence of other genital organ(s)
CPT/HCPCS: 36415; 74177; 80053; 81001; 85025; 85027; 87040; 87070; 87075; 87077; 87186; 87205; 96365; 96367; 96375; 99285; J0131; J0290; J0330; J0696; J1170; J1580; J1885; J2270; J2405; J2704; J3010; J3480; J3490; J7030; J7121; Q9967

== ENCOUNTER → 2022-05-21 13:40 | Outpatient (BNVA) | payer OTHER, SELFPAY | PROVIDERS: PCP Family Medicine; Visit Provider Obstetrics & Gynecology | DX: N73.9 Female pelvic inflammatory disease, unspecified (principal) | CPT/HCPCS: 76857 ==

== ENCOUNTER 2023-01-16 07:41 | Outpatient (CLI) | payer OTHER, SELFPAY ==
--- NOTE | 2023-01-16 07:56 | MM_ITS ---
WS: [id number] BILATERAL SCREENING DIGITAL TOMOSYNTHESIS MAMMOGRAM WITH CAD HISTORY: SCREENING COMPARISON: 12/06/2021 and 05/05/2020 Bilateral CC and MLO views with tomosynthesis and synthetic mammography submitted. Computer aided det ection analyzed. Breast composition: There are scattered areas of fibroglandular density. No suspicious masses, microc alcifications or architectural distortion. Benign calcification central LEFT breast. IMPRESSION: MM/[place] [id number] BI-RADS: 2-Benign FOLLOW UP: 1 Year Follow-up
== END 2023-01-16 07:42 | disposition home or self-care (01) ==
PROVIDERS: PCP Family Medicine; Visit Provider Family Medicine
DX: Z12.31 Encounter for screening mammogram for malignant neoplasm of breast (principal)
CPT/HCPCS: 77063; 77067

== ENCOUNTER 2023-05-01 11:59 | Outpatient (RCR) | payer OTHER, SELFPAY | END 2023-05-16 23:59 | disposition home or self-care (01) | LOC: SPT 11:59 | PROVIDERS: Visit Provider Family Medicine | DX: M67.812 Other specified disorders of synovium, left shoulder (principal); M75.42 Impingement syndrome of left shoulder | CPT/HCPCS: 97110; 97161 ==

== ENCOUNTER 2023-05-17 06:00 | Outpatient (RCR) | payer OTHER, SELFPAY | END 2023-06-16 23:59 | disposition home or self-care (01) | LOC: SPT 06:00 | PROVIDERS: Visit Provider Family Medicine | DX: M67.812 Other specified disorders of synovium, left shoulder (principal); M75.42 Impingement syndrome of left shoulder | CPT/HCPCS: 97110 ==

== ENCOUNTER 2023-06-17 06:00 | Outpatient (RCR) | payer OTHER, SELFPAY | END 2023-07-11 13:15 | disposition home or self-care (01) | LOC: SPT 06:00 | PROVIDERS: Visit Provider Family Medicine | DX: M67.812 Other specified disorders of synovium, left shoulder (principal); M75.42 Impingement syndrome of left shoulder | CPT/HCPCS: 97110 ==

== ENCOUNTER 2024-01-24 08:00 | Outpatient (CLI) | payer OTHER, SELFPAY ==
--- NOTE | 2024-01-24 08:02 | MM_ITS ---
WS: [id number] BILATERAL SCREENING DIGITAL TOMOSYNTHESIS MAMMOGRAM WITH CAD HISTORY: SCREENING COMPARISON: 01/16/2023, 12/06/2021 Bilateral CC and MLO views with tomosynthesis and synthetic mammography submitted. Computer aided det ection analyzed. Breast composition: There are scattered areas of fibroglandular density. No suspicious masses, microc alcifications or architectural distortion. Benign calcifications central LEFT breast. MM/MM scr BI tomosynthesis [id number] IMPRESSION: BI-RADS: 2 - Benign. FOLLOW UP: 1 Year Follow-up
== END 2024-01-24 08:01 | disposition home or self-care (01) ==
PROVIDERS: Visit Provider Family Medicine
DX: Z12.31 Encounter for screening mammogram for malignant neoplasm of breast (principal)
CPT/HCPCS: 77063; 77067

== ENCOUNTER → 2024-08-19 12:13 | Outpatient (BNVA) | payer OTHER, SELFPAY | PROVIDERS: PCP Family Medicine; Visit Provider Internal Medicine | DX: R00.1 Bradycardia, unspecified (principal); I44.1 Atrioventricular block, second degree | CPT/HCPCS: 93005 ==

== ENCOUNTER 2024-08-25 06:59 | Outpatient (CLI) | payer OTHER, SELFPAY ==
--- NOTE | 2024-08-25 | ECG_ITS ---
[facility] Pat Name: Opal Willoughby Department: Room: Gender: Female Hot Punch Press Operator: : 1970 Requested By: Chip Carter Order Number: [id number] Posada MD: Gordo Campbell M.D. Interpretive Statements Lung unchanged pre/post procedure; Intraprocedure shortess of breath; Symptoms resoled by discharge PROCEDURE: At the baseline, the patient's blood pressure was 118/73 with a heart rate of 41 bpm. The baseline electrocardiogram showed sinus bradycardia with a rate of [address] Ts. Poor R wave progression. The patient exercised for 10 minutes and 1 second on a standard [place] protocol. Patient attained a maximum heart rate of 135 beats per minute(80% of the maximum predicted heart rate) with a blood pressure at the peak exercise of 208/105 mm Hg. The EKG at the peak exercise revealed no significant changes. Patient did not have any chest pain or any significant cardiac arrhythmias with the exercise During the recovery phase, there were no new changes. Blood pressure at the end of the recovery phase was 139/60 mm Hg with a heart rate of 79 per minute. CONCLUSION: 1. No significant EKG changes with the readmill exercise 2. No exercise-induced chest pain or cardiac arrhythmia 3. Good exercise tolerance, attained a maximum of 13.5 METs 4. Low probability for significant ischemia based on the above findings Electronically Signed On 08-26-2024 13:39:56 CDT by Gordo Campbell M.D. [email or web address]
--- NOTE | 2024-08-25 07:10 | USCV_ITS ---
Opal Willoughby Age: 54 Gender: F : 1970 Exam Date: 08/25/2024 07:23 Ordering Phys: Chip Duque MD Technologist: BOZENA [place] [facility] [place]: Bradycardia BP: 82 / 60 HR: 59 Rhythm: Sinus Technical Quality: Adequate MEASUREMENTS (Male / Female) Normal Values 2D ECHO LV Diastolic Diameter PLAX 4.0 cm 4.2 - 5.9 / 3.9 - 5.3 cm IVS Diastolic Thickness 0.7 cm 0.6 - 1.0 / 0.6 - 0.9 cm IVS Systolic Thickness 1.4 cm LVPW Diastolic Thickness 0.9 cm 0.6 - 1.0 / 0.6 - 0.9 cm LVPW Systolic Thickness 1.1 cm LVOT Diameter 1.9 cm LV Ejection Fraction 2D Teich 53.1 % LV Ejection Fraction MOD 4C 58.7 % LV Ejection Fraction MOD 2C 62.4 % LV Ejection Fraction 2C AL 64.0 % LA Diameter 3.2 cm RA Systolic Volume 4C AL 51.6 ml RA Systolic Volume 4C MOD 49.1 ml LA Sys Volume AL 46.1 cm cubed LA Sys Volume Index AL 21.8 cm cubed/m squared Aorta at Sinotubular Diameter 2.0 cm IVC Diameter 2.3 cm M-MODE LA Ao Ratio MM 1.8 AV Cusp Separation MM 1.4 cm DOPPLER AV Peak Velocity 120.0 cm/s LVOT Peak Velocity 114.0 cm/s AV Area Cont Eq vti 2.6 cm squared AV Area Cont Eq pk 2.8 cm squared MV Peak Velocity 91.0 cm/s MV Area PHT 6.4 cm squared Mitral E to A Ratio 1.1 TR Peak Velocity 238.0 cm/s TR Peak Gradient 22.7 mmHg TV Peak E Velocity 85.0 cm/s PV Peak Velocity 98.0 cm/s FINDINGS Left Ventricle Normal left ventricular size and systolic function, EF 62%.. No regional wall motion abnormalities. Right Ventricle The right ventricle is normal in size and function. Right Atrium The right atrium is normal in size. Left Atrium The left atrium is normal in size. Mitral Valve Structurally normal mitral valve. Aortic Valve No gross abnormalities noted Tricuspid Valve No gross abnormalities no Pulmonic Valve No gross abnormalities noted Pericardium Normal pericardium without effusion. Aorta Normal ascending aorta dimension. IVC The inferior vena cava appears normal. CONCLUSIONS Normal left ventricular size and systolic function, EF 62%.. No regional wall motion abnormalities. Normal cardiac chamber sizes. No valvular abnormalities noted No significant stenotic or regurgitant lesions . There is no pericardial effusion. There are no intracardiac masses. No similar previous studies are available for comparison Dr Gordo Campbell MD [facility] (Electronically Signed) Final Date: 26 August 2024 09:02 S
[2024-08-25 12:56] VITALS: BMI 29.6
[2024-08-25 13:06] VITALS: BP 139/60; PULSE 49
== END 2024-08-25 07:00 | disposition home or self-care (01) ==
LOC: RAD 07:01 → CDL 12:10
PROVIDERS: PCP Family Medicine; Visit Provider Family Medicine
DX: R00.1 Bradycardia, unspecified (principal)
CPT/HCPCS: 93017; 93306

== ENCOUNTER 2024-12-06 13:20 | Emergency (ER) | payer OTHER, SELFPAY ==
[2024-12-06 13:22] VITALS: BP 159/87; PULSE 53; RESP 16; TEMP 36.9; O2SAT 95; BMI 30.5
--- OUTSIDE RECORDS SUMMARY | 2024-12-06 13:23 | XMS_ITS | Patient Health Record ---
Author Organization [employer] Address [address] [place] [address] Care Team Providers Care Pvc Monitor Name Role Phone None, None Primary Care Provider OPAL Casillas Unavailable [phone] Allergies No Known Allergies Reason For Referral No Information Medications Medication SIG (Take, Route, Frequency, Duration) Notes Start Date End Date Status Dorzolamide HCl-Timolol Mal 22.3-6.8 MG/ML instill 1 drop in IN EACH EYE TWICE DAILY Ophthalmic; Duration: 90 Days Active Travoprost (TANNA Free) 0.004 % instill 1 drop in IN EACH EYE AT BEDTIME Ophthalmic; Duration: 30 Days Active Problems Problem Type SNOMED Code ICD Code Onset Dates Problem Status W/U Status Risk Notes Problem Pernicious anemia (50680146) Vitamin B12 deficiency anemia due to intrinsic factor deficiency (D51.0) Active confirmed Problem Vitamin D deficiency (85212850) Vitamin D deficiency, unspecified (E55.9) Active confirmed Problem Dysmenorrhea (820784333) Dysmenorrhea, unspecified (N94.6) Active confirmed Problem Menopause (654803768) Menopausal and female climacteric states (N95.1) Active confirmed Problem Flushing (38371041) Flushing (R23.2) Active confirmed Problem Irritability and anger (779090920) Irritability and anger (R45.4) Active confirmed Problem Fatigue (90312967) Other fatigue (R53.83) Active confirmed Problem Reduced libido (4392764) Decreased libido (R68.82) Active confirmed Problem Depression (305716148) Depression, unspecified (F32.A) Active confirmed Plan Of Treatment Pending Test Test Name Order Date Pelvis--[id number] 11/15/2021 Insurance Providers Payer Name Payer Address Payer Phone Subscriber Number Group Number Insured Name Patient Relationship to Insured Coverage Start Date Coverage End Date [employer] [address] [place] [phone] [id number] Opal Willoughby Self - patient is the insured Medical (General) History Surgical History Surgery Date(Month/Year) Retinal Detachment Repair 09/15 05/19
--- OUTSIDE RECORDS SUMMARY | 2024-12-06 13:23 | XMS_ITS | Clinical Summary ---
Author Organization [facility] Address [address] [place] [address] Care Team Providers Care Modeling Teacher Name Role Phone Chip Duque MD Primary Care Provider [phone] Allergies No known active allergies Medications OTHER PREDNISOLONE 1%/ GATIFLOXACIN 0.5%/ BROMFENAC 0.075%. 1 DROP TO OPERATIVE EYE THREE TIMES/DAY START 3 DAYS PRIOR TO SURGERY/ CONTINUE 3 WKS 4 mL 0 Active hypochlorous acid-sodium chlor (Avenova) 0.01 % [place], Non-Aerosol by See Admin Instructions route see administration instructions. Apply to lash line TWICE daily. 40 mL 0 Active TIMOLOL OP by Ophthalmic route. Active multivitamin (DAILY-HANS) tablet Take 1 Tablet by mouth daily. Active travoprost (TRAVATAN Z) 0.004 % solution Administer 1 Drop in right eye daily at bedtime. 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 Family History Medical History Relation Name Comments Cancer Brother Diabetes Brother Hypertension Brother Stroke Brother Cancer Father Diabetes Father Hypertension Father Stroke Father Thyroid Disease Father Cancer Mother Diabetes Mother Glaucoma Mother Hypertension Mother Stroke Mother Thyroid Disease Mother Cancer Sister Diabetes Sister Hypertension Sister Stroke Sister Thyroid Disease Sister Relation Name Status Comments Brother Father Mother Sister Social History Tobacco Use Types Packs/Day Years Used Date Smoking Tobacco: Never Smokeless Tobacco: Never Alcohol Use Standard Drinks/Week Comments Not Currently 0 (1 standard drink = 0.6 oz pur e alcohol) Comments Unknown Sex and Gender Information Value Date Recorded Sex Assigned at Not on file Legal Sex Female 2:04 PM CDT Gender Identity Not on file Sexual Orientation Not on file Last Filed Vital Signs Vital Sign Reading Time Taken Comments Blood Pressure 108/71 09/30/2019 2:54 PM CDT Pulse 70 09/30/2019 12:18 PM CDT Temperature 36.6 C (97.9 F) 09/30/2019 12:18 PM CDT Respiratory Rate 18 09/30/2019 12:18 PM CDT Oxygen Saturation 100% 09/30/2019 12:18 PM CDT Inhaled Oxygen Concentration - - Weight 86.2 kg (190 lb) 10/30/2019 1:44 PM CDT P er pt Height 170.2 cm (5' 7 ) 10/30/2019 1:44 PM CDT P er pt Body Mass Index 29.76 10/30/2019 1:44 PM CDT Plan of Treatment Health Maintenance Due Date Last Done Comments DTAP/TDAP/TD VACCINES (1 - Tdap) 1991 HEPATITIS B VACCINES (1 of 3 - 19+ 3-dose series) 03/19 HPV/Cotest (21-29) 1993 CERVICAL CANCER SCREENING 2002 HPV/Cotest (30-65) 2002 PAP SMEAR 2002 BREAST CANCER SCREENING 2012 COLORECTAL SCREENING 2017 Colorectal Cancer Screening 2017 FIT-DNA Q 3 years 2017 FIT/FOBT Q 1 year 2017 Flex Sig/CT Colonography Q 5 years 2017 ZOSTER VACCINE (1 of 2) 2022 INFLUENZA VACCINE (#1) 2024 Medical Devices Implanted Type Area Grinder Machine Setter Device Identifier Shelf Expiration Date Model / Serial / Lot Lens Io Tecnis 1pc 5.5 [id number] - [id number] Implanted:Qty: 1 on 09/30/2019 by Dana Dyer MD at [facility] Left: Eye [employer] 08/29/2022 [id number] / [id number] / Ring Tension Capsular [place] Mr-10c - [id number] Implanted:Qty: 1 on 09/30/2019 by Dana Dyer MD at [facility] Left: Eye [employer] 05/15/2023 MR-10C / [id number] / Insurance Advance Directives For more information, please contact: [phone] * Full Code (Latest Code Status on File) Date Activated Date Inactivated Comments 09/30/2019 10:51 AM 09/30/2019 2:39 PM Care Teams Modeling Teacher Relationship Specialty Start Date End Date Chip Duque MD [address] [id number] PCP - General Family Practice 09/29/19
--- OUTSIDE RECORDS SUMMARY | 2024-12-06 13:23 | XMS_ITS | Clinical Summary ---
Author Organization [facility] Address [address] [facility] Attn: Epic Prelude ADT [place] [address] Care Team Providers Care Data Science And Iot Manager Name Role Phone Chip Duque MD Primary Care Provider [phone] Allergies No known active allergies Medications TIMOLOL OP by Ophthalmic route. 0 Active travoprost (TRAVATAN Z) 0.004 % solution Administer 1 Drop in right eye daily at bedtime. 7.5 mL 4 0 Active multivitamin (DAILY-HANS) tablet Take 1 Tablet by mouth daily. 0 Active hypochlorous acid-sodium chlor (Avenova) 0.01 % [place], Non-Aerosol by See Admin Instructions route see administration instructions. Apply to lash line TWICE daily. 40 mL PRN 0 Active OTHER PREDNISOLONE 1%/ GATIFLOXACIN 0.5%/ BROMFENAC 0.075%. 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 Gender Identity Not on file Sexual Orientation Not on file Last Filed Vital Signs Vital Sign Reading Time Taken Comments Blood Pressure 108/71 09/30/2019 2:54 PM CDT Pulse 70 09/30/2019 12:18 PM CDT Temperature 36.6 C (97.9 F) 09/30/2019 12:18 PM CDT Respiratory Rate 18 09/30/2019 12:18 PM CDT Oxygen Saturation - - Inhaled Oxygen Concentration - - Weight 86.2 [...] (#1) 2024 Medical Devices Implanted Type Area Rodeo Clown Device Identifier Shelf Expiration Date Model / Serial / Lot Lens Io Tecnis 1pc 5.5 [id number] - [id number] Implanted:Qty: 1 on 09/30/2019 by Dana Dyer MD Eye Left: Eye [employer] 08/29/2022 [id number] / [id number] / Ring Tension Capsular [place]res Mr-10c - [id number] Implanted:Qty: 1 on 09/30/2019 by Dana Dyer MD Eye Left: Eye [employer] 05/15/2023 MR-10C / [id number] / Care Teams Data Science And Iot Manager Relationship Specialty Start Date End Date Chip Duque MD [address] [id number] PCP - General Family Practice 09/29/19
--- NOTE | 2024-12-06 13:33 | CTR_ITS ---
PROCEDURE INFORMATION: Exam: CT Abdomen And Pelvis With Contrast Exam date and time: 12/06/2024 1:46 PM Age: 54 years old Clinical indication: Abdominal pain; Localized; Lower; Prior surgery; Surgery date: 6+ months; Surgery type: C section x 3, hyster; Additional info: Abd pain TECHNIQUE: Imaging protocol: Computed tomography of the abdomen and pelvis with contrast. Radiation optimization: All CT scans at this facility use at least one of these dose optimization techniques: automated exposure control; mA and/or kV adjustment per patient size (includes targeted exams where dose is matched to clinical indication); or iterative reconstruction. Contrast material: OMNIPAQUE 350; Contrast volume: 100 ml; Contrast route: INTRAVENOUS (IV); COMPARISON: CT abdomen pelvis w con* [id number] 05/02/2022 9:19 AM RADIATION DOSE METRICS: Total DLP (mGy-cm): 763.98 FINDINGS: Liver: Fatty infiltration of the liver, with geographic regions of fatty sparing in the left lobe. Liver mass is not identified. Gallbladder and biliary ducts: The gallbladder is normal. There is no evidence of biliary ductal dilation. Pancreas: The pancreas is normal. No mass. Spleen: The spleen is normal. Adrenal glands: The adrenal glands are normal. Kidneys and ureters: No renal mass or hydronephrosis. Stomach and bowel: Marked low-attenuation mural thickening involves the splenic flexure, descending colon and proximal sigmoid colon. Mild strand-like fluid surrounds portions of the distal sigmoid, without focal pericolonic fluid collection identified. Bowel caliber is normal. Appendix: Normal appendix. Intraperitoneal space: Small amount of free fluid is present in the pelvis. Vasculature: Aortic caliber is normal. Lymph nodes: No lymph node enlargement. Urinary bladder: Small amount of excreted contrast in the bladder. Bladder is otherwise unremarkable. Reproductive: Previous hysterectomy. No adnexal mass identified. Bones/joints: No acute osseous abnormality. Soft tissues: Unremarkable. CT/CT abdomen pelvis w con* [id number] IMPRESSION: Colitis of the descending and sigmoid colon.
--- NOTE | 2024-12-06 13:34 | W.ED.ABDPA2 ---
HPI - Abdominal Pain General: Chief Complaint: Abdominal Pain Stated Complaint: lower Adb pain and bloody stools n/v Time Seen by Provider: 12/06/24 13:25 Source: patient Mode of arrival: ambulatory Limitations: no limitations History of Present Illness: 54-year-old female who states that starting last night she is having vomiting diarrhea and some abdominal cramping. States today she has had some bright red blood in her stool. She denies any black tarry stools she is having some lower abdominal cramping she rates a 5 out of 10 she denies any fever denies any dysuria denies any worse improved factors denies any history of GI bleeds in the past she is not on any blood thinners Associated Symptoms: Reports nausea and vomiting; Denies dysuria Related Data Home Medications ?Medication ?Instructions ?Recorded ?Confirmed travoprost 0.004 % eye drops 1 drp ophthalmic (eye) DAILY 12/28/21 12/06/24 (Travatan Z) dorzolamide 2 % eye drops 1 drp ophthalmic (eye) TID 09/30/24 12/06/24 brimonidine 0.2 % eye drops 1 drp ophthalmic (eye) BID 11/17/24 12/06/24 acetaminophen 500 mg tablet 500 mg PO Q6H PRN Pain 12/06/24 12/06/24 estradiol 1 mg tablet 1 mg PO DAILY 12/06/24 12/06/24 famotidine 20 mg tablet (Pepcid) 20 mg PO DAILY 12/06/24 12/06/24 Previous Rx's ?Medication ?Instructions ?Recorded ciprofloxacin HCl 500 mg tablet 500 mg PO BID #14 tabs 12/06/24 (Cipro) metronidazole 500 mg tablet 500 mg PO Q8H 7 days #21 tabs 12/06/24 ondansetron 4 mg disintegrating 4 mg PO Q6H PRN nausea and 12/06/24 tablet vomiting #14 tabs Allergies Allergy/AdvReac Type Severity Reaction Status Date / Time adhesive Allergy ALGY-Rash Verified 12/06/24 13:29 latanoprost (From Rocklatan) Allergy Unknown Verified 12/06/24 13:29 netarsudil (From Wichitalatan) Allergy Unknown Verified 12/06/24 13:29 Review of Systems GI: Reports: abdominal pain, nausea and vomiting : Denies: flank pain or dysuria Musc: Denies: back pain PFSH ED PFSH: Medical History Fibroids, intramural Abnormal uterine bleeding (AUB) No pertinent past medical history neghx: htn,dm,thyroid,dvt/pe PCP: Dr. Duque Surgical History History of hysterectomy (~04/11/22) LAVH, BSO, Single incision mid urethral sling: for AUB and FELIBERTO-- performed Dr. Monte Hx of section 1) 01/30/1999, Perfomed at [facility] in [place], [place]. 2) 09/26/2000 Performed at [facility] in [place], [place]. 3) 05/26/2003 Performed at [facility] in [place], [place]. Hx of eye surgery 03/1994, Correction of Detached Retina 07/1994, Correction of Detached Retina Hx of cataract extraction (~1995) 1995 2018 Hx of tubal ligation (~2003) Preformed at the time of last in 2003 Family History Mother Family history of thyroid problem Hypertension Hyperlipidemia Father Hypertension Denies family history of Colon cancer Ovarian cancer Diabetes Heart disease Breast cancer Uterine cancer Stroke Social History Smoking and tobacco/nicotine status: never used tobacco/nicotine Physical Exam Const: COMMON NORMALS: no acute distress, patient oriented x3 and healthy appearing HENMT: COMMON NORMALS: normocephalic and atraumatic HEAD & SCALP: normocephalic and atraumatic Eye: COMMON NORMALS: conjunctivae normal CONJUNCTIVA: Yes conjunctivae normal Neck/C-Spine: COMMON NORMALS: full ROM and supple Chest: COMMONS NORMALS: normal inspection of the chest Resp: COMMON NORMALS: normal respiratory effort, No retractions, No use of accessory muscles and clear to auscultation bilaterally AUSCULTATION: clear to auscultation bilaterally Cardio: COMMON NORMALS: regular rate, regular rhythm and No murmurs present (Cardio) RATE: regular rate RHYTHM: regular rhythm GI: COMMON NORMALS: Normal to inspection, nondistended, normoactive bowel sounds present, Soft to palpation, non-tender and no masses PALPATION: Yes Soft to palpation Extremity: COMMON NORMALS: normal to inspection and full ROM Neuro: COMMON NORMALS: patient oriented x3, moves all extremities and no focal motor deficits Psych: COMMON NORMALS: mental status grossly normal, Normal thought process present and cooperative THOUGHT PROCESS: Normal thought process present Skin: COMMON NORMALS: no rashes or lesions noted and no wounds GENERAL SKIN EXAM: no rashes or lesions noted Course Vital Signs: Vital signs: Vital Signs Temperature 98.4 F 12/06/24 13:22 Pulse Rate 53 L 12/06/24 13:22 Respiratory Rate 16 12/06/24 13:22 Blood Pressure 159/87 12/06/24 13:22 Pulse Oximetry 95 12/06/24 13:22 Oxygen Delivery Me thod Room Air 12/06/24 13:22 MDM - Abdominal Pain Medical Decision Making Patient presents for vomiting diarrhea having some slight bright red blood in her stool. Her hemoglobin here is normal no signs of large blood loss vitals here been stable as well. CT scan does show colitis likely causing her symptoms we will start on her Cipro Flagyl along with Zofran for nausea. She feels improved here as well. I reviewed labs and CT with patient she is to follow-up with PCP return if worsening. Medical Records I reviewed the patient's medical records. Lab Data I reviewed the patient's lab results. 12/06/24 13:39 12/06/24 13:39 Labs/Radiology: Radiology Impressions Abdomen/Pelvis CT 12/06/24 13:33 IMPRESSION: Colitis of the descending and sigmoid colon. Laboratory Results WBC 13.77 10^3/uL (3.29-11.43) H 12/06/24 13:39 RBC 5.58 10^6/uL (3.85-5.65) 12/06/24 13:39 Hgb 16.50 g/dL (11.27-16.99) 12/06/24 13:39 Hct 49.2 % (36-47) H 12/06/24 13:39 MCV 88.2 fl (85-98) 12/06/24 13:39 MCH 29.6 pg (27-33) 12/06/24 13:39 MCHC 33.5 g/dL (30-55) 12/06/24 13:39 RDW 13.2 % (12.1-15.1) 12/06/24 13:39 Plt Count 138 10^3/cmm (157-399) L 12/06/24 13:39 MPV 13.5 fL (7.4-10.4) H 12/06/24 13:39 Neut % (Auto) 91.8 % 12/06/24 13:39 Lymph % (Auto) 5.6 % 12/06/24 13:39 Metcalfe % (Auto) 1.9 % 12/06/24 13:39 Eos % (Auto) 0.0 % 12/06/24 13:39 Baso % (Auto) 0.3 % 12/06/24 13:39 Neut # (Auto) 12.65 10^3/uL (1.8-7.7) H 12/06/24 13:39 Lymph # (Auto) 0.8 10^3/uL (0.8-4.8) 12/06/24 13:39 [place]calfe # (Auto) 0.3 10^3/uL (0.2-0.9) 12/06/24 13:39 Eos # (Auto) 0.0 10^3/uL (0.0-0.8) 12/06/24 13:39 Baso # (Auto) 0.0 10^3/uL (0.0-0.1) 12/06/24 13:39 Nucleated RBC % (auto) 0 % 12/06/24 13:39 Nucleated RBCs # 0.0 /100WBC 12/06/24 13:39 Sodium 140 mmol/L (136-145) 12/06/24 13:39 Potassium 4.2 mmol/L (3.5-5.1) 12/06/24 13:39 Chloride 103 mmol/L (98-107) 12/06/24 13:39 Carbon Dioxide 21 mmol/L (22-29) L 12/06/24 13:39 Anion Gap 20.2 (5-19) H 12/06/24 13:39 BUN 10 mg/dL (6-20) 12/06/24 13:39 Creatinine 0.7 mg/dL (0.5-0.9) 12/06/24 13:39 GFR Calculation 87.9 mL/min (90-130) L 12/06/24 13:39 Glucose 127 mg/dL (65-115) H 12/06/24 13:39 Calculated Osmolality 291 mOsm/kg (285-295) 12/06/24 13:39 Calcium 9.6 mg/dL (8.5-10.5) 12/06/24 13:39 Total Bilirubin 0.9 mg/dL (0.15-1.2) 12/06/24 13:39 AST 18 U/L (0-32) 12/06/24 13:39 ALT 24 U/L (0-33) 12/06/24 13:39 Alkaline Phosphatase 79 U/L (35-105) 12/06/24 13:39 Total Protein 7.5 g/dL (6.6-8.7) 12/06/24 13:39 Albumin 4.5 g/dL (3.5-5.2) 12/06/24 13:39 Globulin 3.0 g/dL (1.3-4.6) 12/06/24 13:39 Lipase 19 U/L (13-60) 12/06/24 13:39 Urine Color Yellow (Yellow) 12/06/24 14:03 Urine Appearance Clear (CLEAR) 12/06/24 14:03 Urine pH 6.0 (5-7) 12/06/24 14:03 Ur Specific [place] 1.023 (1.005-1.030) 12/06/24 14:03 Urine Protein Negative (Negative) 12/06/24 14:03 Urine Glucose (UA) Negative (Normal) 12/06/24 14:03 Urine Ketones Trace (Negative) 12/06/24 14:03 Urine Blood Negative (Negative) 12/06/24 14:03 Urine Nitrate Negative (Negative) 12/06/24 14:03 Urine Bilirubin Negative (Negative) 12/06/24 14:03 Urine Urobilinogen 0.2 mg/dL (Negative) 12/06/24 14:03 Ur Leukocyte Esterase Negative (Negative) 12/06/24 14:03 Urine RBC 0-2 /hpf (0-2) 12/06/24 14:03 Urine WBC 0-5 /hpf (0-5) 12/06/24 14:03 Ur Squamous Epith Cells 0-5 /hpf (0-5) 12/06/24 14:03 Amorphous Sediment Not Reportable 12/06/24 14:03 Urine Bacteria None seen /hpf (NONE) 12/06/24 14:03 Hyaline Casts 0-4 /lpf H 12/06/24 14:03 All radiology interpretation(s) finalized by discharge Discharge Plan Discharge Patient Disposition: Home Clinical Impression: Colitis, Vomiting Condition: Stable Prescriptions: New metronidazole 500 mg tablet 500 mg PO Q8H 7 Days Qty: 21 0RF ciprofloxacin HCl [Cipro] 500 mg tablet 500 mg PO BID Qty: 14 0RF ondansetron 4 mg tablet,disintegrating 4 mg PO Q6H PRN (Reason: nausea and vomiting) Qty: 14 0RF No Action brimonidine 0.2 % drops 1 drp ophthalmic (eye) BID Rx Instructions: administer approximately 12 hours apart travoprost [Travatan Z] 0.004 % drops 1 drp ophthalmic (eye) DAILY Rx Instructions: both eyes dorzolamide 2 % drops 1 drp ophthalmic (eye) TID estradiol 1 mg tablet 1 mg PO DAILY acetaminophen 500 mg Tablet 500 mg PO Q6H PRN (Reason: Pain) famotidine [Pepcid] 20 mg Tablet 20 mg PO DAILY Discharge Orders: Discharge ED (Routine); Ordered 12/06/24 Ordered By: Mackenzie Pretty Referrals: Chip Duque MD [Primary Care Provider, Family Practice] - 4-7 days Discharge Diet: Advance as tolerated Discharge Activity: Resume usual activity Patient Instructions: Acute Nausea and Vomiting (ED), Colitis (ED) Print Language: Albanian Coding Level of Care Code ED Evp Chief Exploration Officer for Zohreh Quigley
[2024-12-06] MEDS: ondansetron 2 mg/ML SDV 2 mL 4 MG IVP (13:45)
[2024-12-06 13:48] LABS: Hematocrit 49.2 % (36-47); Hemoglobin 16.50 g/dL (11.27-16.99); Mean Corpuscular HGB Conc 33.5 g/dL (30-55); Mean Corpuscular Hemoglobin 29.6 pg (27-33); Mean Corpuscular Volume 88.2 fl (85-98); Nucleated Red Blood Cells % 0 %; Platelet Count 138 10^3/cmm (157-399); Red Blood Count 5.58 10^6/uL (3.85-5.65); White Blood Count 13.77 10^3/uL (3.29-11.43)
[2024-12-06] MEDS: iohexol 350 mg/mL 500 mL Btl (per mL) IV (13:48)
[2024-12-06 14:06] LABS: Alanine Aminotransferase 24 U/L (0-33); Albumin Level 4.5 g/dL (3.5-5.2); Alkaline Phosphatase 79 U/L (35-105); Anion Gap 20.2 (5-19); Aspartate Amino Transferase 18 U/L (0-32); Blood Urea Nitrogen 10 mg/dL (6-20); Calcium 9.6 mg/dL (8.5-10.5); Carbon Dioxide 21 mmol/L (22-29); Chloride 103 mmol/L (98-107); Creatinine Clr Calc Pharmacy 107.3623; Globulin 3.0 g/dL (1.3-4.6); Glucose 127 mg/dL (65-115); Lipase 19 U/L (13-60); Osmolality Calculated 291 mOsm/kg (285-295); Potassium 4.2 mmol/L (3.5-5.1); Sodium 140 mmol/L (136-145); Total Protein 7.5 g/dL (6.6-8.7)
[2024-12-06 14:11] LABS: Slide Review Slide Review Perform
[2024-12-06 14:22] LABS: Glucose Urine UA Negative (Normal); Nitrate Urine Negative (Negative); Specific Gravity, Urine 1.023 (1.005-1.030)
[2024-12-06 14:27] LABS: Add Urine Microscopic? YES
[2024-12-06 15:29] VITALS: BP 146/83; PULSE 57; O2SAT 97
== END 2024-12-06 15:32 | disposition home or self-care (01) ==
PROVIDERS: Emergency Provider Emergency Medicine; PCP Family Medicine
DX: K52.9 Noninfective gastroenteritis and colitis, unspecified (principal); R11.10 Vomiting, unspecified
CPT/HCPCS: 36415; 74177; 80053; 81001; 83690; 85025; 96374; 99285; J2405; J7030; J9999

== ENCOUNTER 2025-01-28 06:58 | Day surgery (SDC) | payer OTHER, SELFPAY ==
[2025-01-28 07:15] VITALS: BP 121/80; PULSE 74; RESP 16; TEMP 36.3; O2SAT 98; BMI 30.5
--- NOTE | 2025-01-28 07:29 | P.ANESASSM_ITS ---
Pre-Anesthetic Assessment Height/Weight: Height 1.7 m Weight 88.451 kg Temp Pulse Resp BP Pulse Ox O2 Del Method 97.4 F L 74 16 121/80 98 Room Air 01/28/25 07:15 01/28/25 07:15 01/28/25 07:15 01/28/25 07:15 01/28/25 07:15 01/28/25 07:15 Operation Date: 01/28/25 08:20 Proposed Procedures p Colonoscopy [id number] G0105 K52.9(Not Applicable) - Asif Castro MD Familial anesthetic complications: None, low BP post hysterectomy Was Beta Isabella taken within 24 hours: N/A Was Clonidine taken within 24 hours: N/A Last intake: Intake Last Liquid Date 01/27/25 Last Liquid Time 20:00 Last Solid Date 01/26/25 Last Solid Time 18:00 Social No alcohol and No tobacco Exam alert, oriented x 3, clear to auscultation bilaterally and regular rate & rhythm Airway Submandibular: within normal limits Cervical ROM: within normal limits Mallampati: Class II Dentition: full (Cracked tooth, root canal planned) History/ROS No significant history except as noted and No significant complaints Pulmonary None reported CV/HEM Arrythmia (Bradycardia) CONCLUSION: 1. No significant EKG changes with the readmill exercise 2. No exercise-induced chest pain or cardiac arrhythmia 3. Good exercise tolerance, attained a maximum of 13.5 METs 4. Low probability for significant ischemia based on the above findings 09/30/24 f/u. Patient doing well. No chest pain. Occasional palpitations. Echo showed normal LV systolic function and no significant valvular heart disease. Stress test did not reveal ischemic changes on EKG however she reached 80% of maximal predicted heart rate. She did exercised for over 10 minutes and reached 13.5 METS. 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 Average heart rate was low at 50 bpm. None reported Hepatic None reported GI Hx colitis Metabolic None reported Musc/skel None reported Neuropsych None reported Anesthetic Plan ASA status: 2 Anesthesia: Anesthesia Evaluation, General and MAC Risk of > 500 ml blood loss (7ml/kg in children): No Medications/Allergies Home Medications ?Medication ?Instructions ?Recorded ?Confirmed ?Last Taken ?Type travoprost 0.004 % eye drops 1 drp ophthalmic (eye) LILI HUERTAS 12/28/21 01/28/2501/28/25 History (Travatan Z) dorzolamide 2 % eye drops 1 drp ophthalmic (eye) TID 0 09/30/24 01/28/25 01/28/25 History brimonidine 0.2 % eye drops 1 drp ophthalmic (eye) BID 11/17/24 01/28/25 01/28/25 History estradiol 1 mg tablet 1 mg PO DAILY 12/06/2401/2801/27/25 History Allergies Allergy/AdvReac Type Severity Reaction Status Date / Time adhesive Allergy ALGY-Rash Verified 01/28/25 07:14 latanoprost (From [facility]) Allergy Unknown Verified 01/28/25 07:14 [facility] Allergy Unknown Verified 01/28/25 07:14 Current Medications Generic Name Dose Route Start Last Admin Trade Name Freq PRN Reason Stop Dose Admin Sodium Chloride 1,000 mls @ 15 mls/hr 01/28/25 07:03 01/28/25 07:22 Sodium Chloride 0.9% IV 01/29/25 07:02 15 mls/hr .Q24H PRN Administration COLONOSCOPY FLUIDS PFSH Anesthesia Medical History Fibroids, intramural Abnormal uterine bleeding (AUB) No pertinent past medical history neghx: htn,dm,thyroid,dvt/pe PCP: Dr. Duque Surgical History History of hysterectomy (~04/11/22) LAVH, BSO, Single incision mid urethral sling: for AUB and FELIBERTO-- performed Dr. Monte Hx of section 1) 01/30/1999, Perfomed at [facility] in [place], [place]. 2) 09/26/2000 Performed at [facility] in [place], [place]. 3) 05/26/2003 Performed at [facility] in [place], [place]. Hx of eye surgery 03/1994, Correction of Detached Retina 07/1994, Correction of Detached Retina Hx of cataract extraction (~1995) 1995 2018 Hx of tubal ligation (~2003) Preformed at the time of last in 2003 Family History (Updated 12/30/24 @ 11:06 by TAY Daley) Mother Family history of thyroid problem Hypertension Hyperlipidemia Stroke Diverticulitis Father Hypertension Stroke Denies family history of Colon cancer Ovarian cancer Diabetes Heart disease Breast cancer Uterine cancer Social History Smoking and tobacco/nicotine status: never used tobacco/nicotine Data Anesthesia Cardiac Studies: Echocardiogram Ultrasound 08/25/24 Cardiac Event Monitor 08/19/24 Holter Monitor 07/23/24
--- NOTE | 2025-01-28 07:44 | W.PM.OPSUD ---
Surgery/Procedure H&P Update DATE OF PROCEDURE: January 28, 2025 DATE H&P PERFORMED: 12/30/24 H&P UPDATE INFORMATION: I have reviewed H&P completed within last 30 days, I have examined patient prior to procedure, No changes to prior documentation, H&P is in [facility] EMR on date indicated and Risks and benefits of the procedure reviewed PLANNED PROCEDURE: Operation Date: 01/28/25 08:20 Proposed Procedures p Colonoscopy [id number] G0105 K52.9(Not Applicable) - Asif Castro MD
[2025-01-28 08:15] VITALS: BP 106/63; PULSE 64; RESP 18; TEMP 36.2; O2SAT 94
[2025-01-28 08:29] VITALS: BP 107/63; PULSE 60; RESP 16; O2SAT 98
--- NOTE | 2025-01-28 08:55 | ANE.PACU2 ---
Inpatient post-anesthesia follow up: Airway intact: Yes Vital signs: Temperature 97.1 F Pulse Rate 60 Respiratory Rate 16 Blood Pressure 107/63 Pulse Oximetry 98 Oxygen Delivery Me thod Room Air Oxygen Flow Rate Fraction of Inspir ed Oxygen Hydration adequate: Yes Nausea and vomiting: No Pain level: 1 Mental status: Baseline
== END 2025-01-28 08:55 | disposition home or self-care (01) ==
PROVIDERS: PCP Family Medicine; Visit Provider Surgery
PROC: 0DJD8ZZ Inspection of Lower Intestinal Tract, Via Natural or Artificial Opening Endoscopic (ICD-10-PCS; CPT 45378; principal; 2025-01-28 08:20)
DX: K52.9 Noninfective gastroenteritis and colitis, unspecified (principal); R00.1 Bradycardia, unspecified
CPT/HCPCS: 45380; 88305; J2704; J3490; J7030; J9999

== ENCOUNTER 2025-03-15 07:50 | Outpatient (CLI) | payer OTHER, SELFPAY ==
--- NOTE | 2025-03-15 07:54 | MM_ITS ---
WS: [id number] BILATERAL SCREENING DIGITAL TOMOSYNTHESIS MAMMOGRAM WITH CAD HISTORY: ANNUAL SCREENING COMPARISON: 01/24/2024, 01/16/2023, 02/19/2019 Bilateral CC and MLO views with tomosynthesis and synthetic mammography submitted. Computer aided detection analyzed. Breast composition: There are scattered areas of fibroglandular density. No suspicious masses, microcalcifications or architectural distortion. Benign calcification central LEFT breast. Asymmetries are stable. MM/MM scr BI tomosynthesis [id number] IMPRESSION: BI-RADS: 2 - Benign. FOLLOW UP: 1 Year Follow-up
== END 2025-03-15 07:51 | disposition home or self-care (01) ==
LOC: RAD 07:50
PROVIDERS: PCP Family Medicine; Visit Provider Family Medicine
DX: Z12.31 Encounter for screening mammogram for malignant neoplasm of breast (principal); R92.323 Mammographic fibroglandular density, bilateral breasts; R92.1 Mammographic calcification found on diagnostic imaging of breast; N64.89 Other specified disorders of breast
CPT/HCPCS: 77063; 77067